=== PATIENT | male | born 1945 | race Caucasian/White ===

== ENCOUNTER 2018-01-19 16:58 | Inpatient (IN) | payer OTHER, MEDICARE ==
[~2018-01-19] VITALS: Ht 193 cm; Wt 125.7 kg
--- NOTE | 2018-01-19 17:09 | ED GENERAL ADULT ---
History of Present Illness General Chief Complaint: Lower Extremity Problems Stated Complaint: BIBA FOR "WOUND LEAKAGE" ON LEFT FOOT Source: patient, old records, EMS, W10 Exam Limitations: no limitations Vital Signs & Intake/Output Vital Signs & Intake/Output Vital Signs Date Time Temp Pulse Resp B/P B/P Pulse O2 O2 Flow FiO2 Mean Ox Delivery Rate 01/19 1830 99.9 104 20 98/50 93 Room Air 01/19 1758 Room Air 01/19 1744 103.0 01/19 1704 103.0 107 18 110/58 93 Room Air Allergies Coded Allergies: No Known Allergies (01/19/18) Triage Note: PT BIBA FROM [facility] FOR L LEG WOUND DRAINING. PT SEES [facility]. PT TEMP 103 UPON ARRIVAL. PT MENTATING WELL. MD ROSS AT BEDSIDE. Triage Nurses Notes Reviewed? yes HPI: Patient sent in from the nursing facility for evaluation of fever and had ulcers on his foot. Patient found to be febrile to 103. Patient is tachycardic. Patient denies any pain. Patient states that he is only here for evaluation of the fever. Past History Travel History Traveled to [place] past 21 day No Medical History Any Pertinent Medical History? see below for history Cardiovascular: CAD, hypertension, hyperlipidemia Respiratory: pulmonary embolism Endocrine: diabetes Surgical History Surgical History: non-contributory Psychosocial History Tobacco Use: Quit >30 days ago ETOH Use: denies use Illicit Drug Use: denies illicit drug use Family History Hx Contributory? No Review of Systems Review of Systems Constitutional: Reports: see HPI, chills, fever, weakness. EENTM: Reports: no symptoms. Respiratory: Reports: no symptoms. Cardiovascular: Reports: no symptoms. GI: Reports: no symptoms. Genitourinary: Reports: no symptoms. Musculoskeletal: Reports: see HPI. Skin: Reports: no symptoms. Neurological/Psychological: Reports: no symptoms. Hematologic/Endocrine: Reports: no symptoms. Immunologic/Allergic: Reports: no symptoms. All Other Systems: Reviewed and Negative Physical Exam Physical Exam General Appearance: well developed/nourished, alert, awake, anxious, moderate distress Head: atraumatic, normal appearance Eyes: Bilateral: PERRL, EOMI. Ears, Nose, Throat: normal pharynx, normal ENT inspection, hearing grossly normal Neck: normal inspection, supple, full range of motion Respiratory: normal breath sounds, chest non-tender, no respiratory distress, lungs clear Cardiovascular: regular rate/rhythm, normal peripheral pulses Gastrointestinal: normal bowel sounds, soft, non-tender, no organomegaly Back: normal inspection, normal range of motion Extremities: LEFT FOOT, ERYTHEMA, HOT, OPEN WOUNDS WITH ACTIVE DRAINAGE Neurologic/Psych: awake, alert, oriented x 3 Core Measures ACS in differential dx? No CVA/TIA Diagnosis: No Sepsis Present: Yes Sepsis Focused Exam Completed? Yes ED Sepsis Exam Date of Focused Sepsis Exam: 01/19/18 Time of Focused Sepsis Exam: 1820 Sepsis Cardiac Exam: Tachycardia Sepsis Resp Exam: CTA Sepsis Cap Refill Exam: <2 Sec Sepsis Peripheral Pulse Exam: Normal Sepsis Peripheral Pulse Location: Radial Sepsis Skin Color Exam: Normal for Ethnicity Skin Temp/Moisture Exam: Warm/Dry Progress Differential Diagnoses I considered the following diagnoses in my evaluation of the patient: [Sepsis, cellulitis, infected foot ulcer] Plan of Care: Orders Procedure Date/time Status Heart Healthy Diet 01/20 B Active LACTIC ACID 01/19 2007 Active ED Holding Orders 01/19 183 Active Admit to inpatient 01/19 1832 Active Vital Signs 01/19 1832 Active Code Status 01/19 1832 Active Telemetry/Welcome Wagon Host/Hostess 01/19 1821 Active CULTURE,URINE 01/19 170 Active BLOOD CULTURE 01/19 1707 Active URINALYSIS 01/19 1707 Complete TROPONIN LEVEL 01/19 1707 Complete PARTIAL THROMBOPLASTIN TIME 01/19 1707 Complete PROTHROMBIN TIME 01/19 1707 Complete LACTIC ACID 01/19 1707 Complete COMPREHENSIVE METABOLIC PANEL 01/19 1707 Complete CBC WITHOUT DIFFERENTIAL 01/19 170 Complete EKG 01/19 1707 Active Current Medications Sig/Carmelita Start time Last Medication Dose Stop Time Status Admin Non-Formulary 0 SEE ADMIN CRITERIA 01/19 1715 CAN Medication (NON FORMULARY) Laboratory Tests 01/19/18 1750: Urinalysis MOD H, Urine Color YEL, Urine Clarity CLDY H, Urine pH 7.5, Ur Specific [place] 1.015, Urine Protein 30 H, Urine Ketones NEG, Urine Nitrite NEG, Urine Bilirubin NEG, Urine Urobilinogen 0.2, Ur Leukocyte Esterase LARGE H , Ur Microscopic SEDIMENT EXAMINED, Urine RBC 1-3, Urine WBC 25-50 H, Ur Epithelial Cells RARE, Urine Crystals 1+ TRIP PHOS H, Urine Bacteria MANY H, Hyaline Casts RARE H, Granular Casts RARE H, Urine Mucus FEW, Urine Hemoglobin SMALL H, Urine Glucose NEG 01/19/18 1725: Anion Gap 12, Estimated GFR > 60, BUN/Creatinine Ratio 19.1, Glucose 164 H, Lactic Acid 1.8, Calcium 8.7, Total Bilirubin 0.5, AST 31, ALT 30, Alkaline Phosphatase 96, Troponin I < 0.01, Total Protein 7.2, Albumin 3.3 L, Globulin 3.9, Albumin/Globulin Ratio 0.8 L, PT 35.4 H, INR 3.21 H, APTT 40 H, CBC w Diff NO MAN DIFF REQ, RBC 4.96, MCV 82.5, MCH 27.0, MCHC 32.7 L, RDW 15.7 H, MPV 7.2 L, Gran % 82.5 H, Lymphocytes % 6.5 L, Monocytes % 8.5, Eosinophils % 2.0, Basophils % 0.5, Absolute Granulocytes 6.8 H, Absolute Lymphocytes 0.5 L, Absolute Monocytes 0.7 H, Absolute Eosinophils 0.2, Absolute Basophils 0 Microbiology 01/19 1750 URINE ROUT: Urine Culture - RECD 01/19 1745 BLOOD: Blood Culture - RECD 01/19 1725 BLOOD: Blood Culture - RECD Diagnostic Imaging: Viewed by Me: Radiology Read. Discussed w/RAD: Radiology Read. CXR Impression: PATIENT: YUSUF HIDALGO PRESENT AGE: 72 PATIENT ACCOUNT NO: [id number] : 43 LOCATION: [facility] ORDERING PHYSICIAN: Aravind Ross MD SERVICE DATE: 01/19/18 EXAM TYPE: RAD - XRY- PORTABLE CHEST XRAY EXAMINATION: XR PORTABLE CHEST CLINICAL INFORMATION: Fever COMPARISON: None TECHNIQUE: Portable frontal view of the chest was obtained. FINDINGS: The lungs are moderately expanded with patchy opacity left lung base retrocardiac region. Rest of lungs are clear.. Heart size is borderline with normal pulmonary vascularity. No gross bony abnormality seen. IMPRESSION: Patchy opacity left lung base retrocardiac area question infiltrate versus atelectasis. Recommend lateral view. DICTATED BY: Marjorie ABREU,Diego DATE/TIME DICTATED:01/19/181750 ONLINE PROGRAM COORDINATOR:MAXWELL DATE/TIME TRANSCRIBED:01/19/181750 CONFIDENTIAL, DO NOT COPY WITHOUT APPROPRIATE AUTHORIZATION. <Electronically signed in Other Vendor System> SIGNED BY: Marjorie ABREU,Diego 01/19/18 6987 Initial ED EKG: S TACH, NSSTT CHANGES Prior EKG: unchanged Rhythm Strip: sinus tachycardia Comments: Discussed with Dr. Fernández, he will consult on the patient tomorrow. Departure Departure Disposition: STILL A PATIENT Condition: Guarded Clinical Impression Primary Impression: Cellulitis Secondary Impressions: Foot ulcer Referrals: Allie ABREU,Bennett Sevilla (PCP/Family) Departure Forms: Customer Survey General Discharge Information Admission Note [facility]: [facility]ame Willis [facility] Documentation of Exam: Documentation of any treatments & extenuating circumstances including Concerns Regarding Discharge (functional status, medication knowledge or non-compliance, living conditions, etc.) that warrant an admission rather than observation: [IV fluids, IV antibiotics, wound consultation, patient is at high risk for early discharge.] Critical Care Note Critical Care Note Critical Care Time: non-applicable
[2018-01-19 17:35] LABS: ABSOLUTE BASOPHIL COUNT 0 /CUMM (0.0-0.2); ABSOLUTE EOSINOPHIL COUNT 0.2 /CUMM (0.0-0.7); ABSOLUTE GRANULOCYTE CT 6.8 /CUMM (1.4-6.5); ABSOLUTE LYMPH COUNT 0.5 /CUMM (1.2-3.4); ABSOLUTE MONOCYTE COUNT 0.7 /CUMM (0.10-0.60); BASOPHIL % 0.5 % (0.0-2.0); GRANULOCYTE % 82.5 % (42.2-75.2); HEMATOCRIT 40.9 % (42-52); MEAN CORPUSCULAR HGB CONC 32.7 G/DL (33.0-37.0); MEAN CORPUSCULAR VOLUME 82.5 FL (80.0-94.0); MEAN PLATELET VOLUME 7.2 FL (7.4-10.4); PLATELET COUNT 392 /CUMM (130-400); RBC DISTRIBUTION WIDTH 15.7 % (11.5-14.5); RED BLOOD CELL CT 4.96 /CUMM (4.70-6.10); WHITE BLOOD CELL COUNT 8.2 /CUMM (4.8-10.8)
[2018-01-19 17:45] LABS: PT 35.4 SEC (9.4-12.5); PTT 40 SEC (25-37)
--- NOTE | 2018-01-19 17:57 | RADIOLOGY REPORT ---
EXAMINATION: XR PORTABLE CHEST CLINICAL INFORMATION: Fever COMPARISON: None TECHNIQUE: Portable frontal view of the chest was obtained. FINDINGS: The lungs are moderately expanded with patchy opacity left lung base retrocardiac region. Rest of lungs are clear.. Heart size is borderline with normal pulmonary vascularity. No gross bony abnormality seen. IMPRESSION: Patchy opacity left lung base retrocardiac area question infiltrate versus atelectasis. Recommend lateral view.
--- NOTE | 2018-01-19 19:11 | RADIOLOGY REPORT ---
EXAMINATION: XR FOOT, LEFT CLINICAL INFORMATION: Infected foot ulcer. COMPARISON: None TECHNIQUE: AP, lateral, and oblique views of the left foot. FINDINGS: There is moderate soft tissue swelling along the plantar aspect of distal metatarsals but no bony erosive changes to suggest any osteomyelitis. No periosteal thickening elevation. No soft tissue gas seen to suggest any abscess. The ankle mortise and subtalar joints are normal. There is mild dorsal intertarsal spurring on lateral view suggestive of degenerative arthritis. IMPRESSION: No visible periosteal elevation, bony erosive changes or gas seen in the plantar soft tissues of the digits. There is however moderate soft tissue swelling along the plantar aspect. Mild degenerative changes dorsal intertarsal joints.
--- NOTE | 2018-01-19 20:10 | History & Physical ---
Aravind Quinonez MD 01/19/18 2009: General Information and HPI MD Statement: I have seen and personally examined YUSUF HIDALGO and documented this H&P. The patient is a 72 year old M who presented with a patient stated chief complaint of [fever]. Source of Information: patient, old records Exam Limitations: poor historian History of Present Illness: Patient is a 72-year-old male with a PMH significant for PVD, DVT status post IVC filter, urinary retention secondary to obstructive uropathy with suprapubic catheter placed, CVA, hypothyroidism, paroxysmal A. fib, CKD resolved, chronic venous stasis ulcers who presents to the [facility] ED from [facility] for evaluation of a fever. At [facility] patient's T-max was 102.9. Patient denies any subjective fevers, endorses mild chills over the past 2 days but overall is a poor historian. He denies any worsening of his chronic lower extremity wounds but does report intermittent shooting pain up his legs. Patient reports having a productive cough for the last 34 weeks which began with whitish sputum but has progressed to greenish sputum over the last week or so. He has associated rhinorrhea. He denies any lightheadedness, dizziness, headaches, sore throat, abdominal pain, diarrhea, melena. Allergies/Medications Allergies: Coded Allergies: No Known Allergies (01/19/18) Home Med list Escitalopram Oxalate 10 MG TABLET 1 TAB PO DAILY mental health (Reported) Furosemide 40 MG TABLET 1 TAB PO DAILY heart health (Reported) Levothyroxine Sodium 75 MCG TABLET 1 TAB PO DAILY hypothyroid (Reported) Montelukast Sodium 10 MG TABLET 1 TAB PO DAILY sesonal allergies (Reported) Potassium Chloride 20 MEQ TAB.ER.PRT 1 TAB PO DAILY supplement (Reported) Pravastatin Sodium 40 MG TABLET 1 TAB PO QPM hld (Reported) Ropinirole HCl 0.5 MG TABLET 1 TAB PO QPM RLS (Reported) Tamsulosin HCl 0.4 MG CAP.ER.24H 1 CAP PO DAILY BPH (Reported) Warfarin Sodium 6 MG TABLET 1 TAB PO DAILY DVT (Reported) Past History Travel History Traveled to [place] past 21 day No Medical History Neurological: NONE EENT: NONE Cardiovascular: hypertension, hyperlipidemia, paroxismal A fib Respiratory: pulmonary embolism Gastrointestinal: NONE Hepatic: NONE Renal: NONE Musculoskeletal: NONE Psychiatric: NONE Endocrine: hypothyroidism Blood Disorders: NONE Cancer(s): NONE TAX ASSESSOR/Reproductive: NONE Surgical History Surgical History: non-contributory Past Family/Social History Family History Relations & Conditions if any Relation not specified for: *No pertinent family history Psychosocial History Where do you live? Extended Care Facility Who Do You Live With? self Services at Home: Nursing Primary Language: Hungarian Smoking Status: Former Smoker ETOH Use: denies use Illicit Drug Use: denies illicit drug use Functional Ability Ambulation: bedrest for chronic venous stasis ulcer Review of Systems Review of Systems Constitutional: Reports: chills. Denies: fever. EENTM: Denies: blurred vision, double vision, visual changes. Cardiovascular: Denies: chest pain, palpitations, syncope. Respiratory: Reports: cough, sputum production. Denies: hemoptysis, short of breath. GI: Denies: abdominal pain, constipation, diarrhea, melena, nausea, vomiting. Genitourinary: Denies: hematuria. Musculoskeletal: Reports: see HPI. Skin: Reports: rash. Exam & Diagnostic Data Last 24 Hrs of Vital Signs/I&O Vital Signs Date Time Temp Pulse Resp B/P B/P Pulse O2 O2 Flow FiO2 Mean Ox Delivery Rate 01/194 84 84/52 01/20 2112 98.6 139 128/60 01/19 2010 96 16 96/54 95 Nasal 2.0L Cannula 01/19 1833 99.9 01/19 1830 99.9 104 20 98/50 93 Room Air 01/19 1758 Room Air 01/19 1744 103.0 01/19 1704 103.0 107 18 110/58 93 Room Air Physical Exam General Appearance Alert, Oriented X3, Cooperative, No Acute Distress Skin L distal lower extremity eryhtmatous patch with multiple large venous stasis ulcer on the medial aspect of the leg with serosanguineous drainage Skin Temp/Moisture Exam: Warm/Dry Sepsis Skin Exam (color): Normal for Ethnicity HEENT Atraumatic, PERRLA, EOMI, Mucous Membr. moist/pink Cardiovascular Normal S1, Normal S2, tachycardic HR 130s Lungs scant rhonchi Abdomen Normal Bowel Sounds, Soft, No Tenderness, suprapubic catheter in place with small amount of purulent drainage around the insertion site Neurological Normal Speech, Strength at 5/5 X4 Ext, Normal Tone, Sensation Intact, Cranial Nerves 3-12 NL Sepsis Peripheral Pulse Location: Radial Sepsis Peripheral Pulse Exam: Normal Sepsis Cap Refill Exam: <2 Sec Last 24 Hrs of Labs/Rito: Laboratory Tests 01/19/182101: ESR Westergren Pending 01/19/182006: Lactic Acid Cancelled 01/19/18 175: Urinalysis MOD H, Urine Color YEL, Urine Clarity CLDY H, Urine pH 7.5, Ur Specific [place] 1.015, Urine Protein 30 H, Urine Ketones NEG, Urine Nitrite NEG, Urine Bilirubin NEG, Urine Urobilinogen 0.2, Ur Leukocyte Esterase LARGE H , Ur Microscopic SEDIMENT EXAMINED, Urine RBC 1-3, Urine WBC 25-50 H, Ur Epithelial Cells RARE, Urine Crystals 1+ TRIP PHOS H, Urine Bacteria MANY H, Hyaline Casts RARE H, Granular Casts RARE H, Urine Mucus FEW, Urine Hemoglobin SMALL H, Urine Glucose NEG 01/19/18 172: Anion Gap 12, Estimated GFR > 60, BUN/Creatinine Ratio 19.1, Glucose 164 H, Lactic Acid 1.8, Calcium 8.7, Total Bilirubin 0.5, AST 31, ALT 30, Alkaline Phosphatase 96, Troponin I < 0.01, Total Protein 7.2, Albumin 3.3 L, Globulin 3.9, Albumin/Globulin Ratio 0.8 L, PT 35.4 H, INR 3.21 H, APTT 40 H, CBC w Diff NO MAN DIFF REQ, RBC 4.96, MCV 82.5, MCH 27.0, MCHC 32.7 L, RDW 15.7 H, MPV 7.2 L, Gran % 82.5 H, Lymphocytes % 6.5 L, Monocytes % 8.5, Eosinophils % 2.0, Basophils % 0.5, Absolute Granulocytes 6.8 H, Absolute Lymphocytes 0.5 L, Absolute Monocytes 0.7 H, Absolute Eosinophils 0.2, Absolute Basophils 0 Microbiology 01/19 1750 URINE ROUT: Urine Culture - RECD 01/19 1745 BLOOD: Blood Culture - RECD 01/19 1725 BLOOD: Blood Culture - RECD Diagnostic Data EKG Results sinus tachycardia with HR 117, PVCs, QTc 436 CXR Results FINDINGS: The lungs are moderately expanded with patchy opacity left lung base retrocardiac region. Rest of lungs are clear.. Heart size is borderline with normal pulmonary vascularity. No gross bony abnormality seen. IMPRESSION: Patchy opacity left lung base retrocardiac area question infiltrate versus atelectasis. Recommend lateral view. Assessment/Plan Assessment: Patient is a 72-year-old male with a PMH significant for PVD, DVT status post IVC filter, urinary retention secondary to obstructive uropathy with suprapubic catheter placed, CVA, hypothyroidism, paroxysmal A. fib, CKD now resolved, chronic venous stasis ulcers who presents to the [facility] ED from [facility] for evaluation of a fever. T-max of 102.9 prior to presentation, and reports subjective chills. Vital signs on presentation: T103, P107, RR 18, BP 110/58, pulse ox 93% on 2 L O2 nasal cannula Labs: WBC 8.2, 13.4/40.9, platelets 392, ESR 92 sodium 139, potassium 2.4, chloride 100, CO2 27, BUN 21, creatinine 1.1, glucose 164, lactic acid was repleted 8, troponin <0.01, INR 3.2 Problems #Sepsis with unclear etiology although could be secondary to either suprapubic catheter infection, lower extremity cellulitis, less likely pneumonia, meeting SIRS criteria for fever, tachycardia #Supratherapeutic INR 3.2 #Hypokalemia #Chronic medical problems including chronic venous stasis ulcers, paroxysmal A. fib, PVD, DVT, hypothyroidism, history of CVA Plan -Admit to general medicine floor -IV vancomycin and Zosyn, patient has grown Pseudomonas resistant to ceftaz in the past and has grown MRSA in his wound cultures previously -Panculture -ID consult in a.m. -Podiatry consult in a.m. -Wound care consult -Hold warfarin, lisinopril, tamsulosin, continue rest of home medication regimen -Follow daily INR and dose Coumadin accordingly -replete and monitor electrolytes -Wean off of supplemental O2 as tolerated Diet: Heart healthy diet DVT prophylaxis: Warfarin with supratherapeutic INR, no mechanical DVT prophylaxis given PVD and lower extremity ulcers CODE STATUS: DNR/DNI As Ranked By This Provider Problem List: 1. Sepsis Core Measures/Misc (04/20) Acute Coronary Syndrome ACS Diagnosis: No Congestive Heart Failure Congestive Heart Failure Diagnosis No Cerebrovascular Accident CVA/TIA Diagnosis: No VTE (View Protocol) VTE Risk Factors Age>40 No Mechanical VTE Prophylaxis d/t Medical Contraindication No VTE Pharm Prophylaxis d/t NA PharmProphylax ordered Sepsis (View protocol) Sepsis Present: Yes If YES complete Sepsis Event Note If YES complete Sepsis Event Note Renetta ABREU,[facility] 01/19/18 2234: Core Measures/Misc (04/20) Sepsis (View protocol) If YES complete Sepsis Event Note If YES complete Sepsis Event Note Resident Review Statement Resident Statement: examined this patient, discussed with internet sales director, agreed with internet sales director Other Findings: 72/M with PMH of PVD, DVT s/p IVC filter & on warfarin, suprapubic catheter 2/2 urinary obstruction, CVA, hypothyroidism, P.Afib, chronic venous stasis ulcers who presents from [facility] for evaluation of a fever. He had T.max of 102.9 at [facility]. The pt reprots chills for the past 2 days. He reports intermittent, mild pain shooting down his left leg. He reports 3-4 weeks of cough productive whitish sputum that has recently progressed to greenish sputum. He has associated rhinorrhea. He denies any other current active complain. Vitals: T.max 103, SBP 80s improved to 90s with fluid, HR 140s improved to 80s after fluid, O2 94 on 2 L of NC. Labs: No leukocytosis, H&H 13&40, ESR 92 was 52 on Sep, INR 3.21, K 3.4, Cr 1.1, Glucose 164, normal LFT. Imaging: CXR possible pneumonia, recommend lateral view which showed no acute pathology. Foot Xray showed moderate soft tissue swelling along the plantar aspect. Physical Exam, refer to the anterior note Assessment: This is a 72-year-old male with extensive past medical history including but not limited to left lower extremity venous stasis ulcer and suprapubic urinary catheter that was showing some pus around the insertion site. The ulcer did not show sign of infection however ESR was elevated up to 92 from 52 on September. The patient is on warfarin for A. fib and history of DVT, INR was 3.21. In the past he Pseudomonas resistant to ceftazidime and Cipro and MRSA on the ulcer. Problem list: * Sepsis secondary to infected suprapubic catheter. * A likely other source of infection or pneumonia and left lower extremity ulcer * PVD, DVT s/p IVC filter & on warfarin * Suprapubic catheter 2/2 urinary obstruction * Hx CVA * Hypothyroidism * P.Afib * Chronic venous stasis ulcers. Plan: * Admit to general medicine floor * Continue IV fluids hydration * Start IV vancomycin and Piperacillin/tazobactam * Panculture * ID, podiatry, wound consults * Continue the citalopram, levothyroxine, montelukast, pravastatin, ropinirole. * We will hold lisinopril, tamsulosin, and warfarin. -Heart healthy diet -DVT PPX: We can't use ALPS because of ulcer & DVTs hx, we will hold warfarin. -DNR/DNI Lazaro ABREU, [facility] 01/19/18 2234: Core Measures/Misc (04/20) Sepsis (View protocol) If YES complete Sepsis Event Note If YES complete Sepsis Event Note Attending MD Review Statement Attending Statement Attending MD Statement: examined this patient, discuss w/resident/PA/TRIM MACHINE OPERATOR, agreed w/resident/PA/TRIM MACHINE OPERATOR, reviewed images, amended to note Attending Assessment/Plan: 72 yo M with h/o HTN, paroxysmal Afib, left leg DVT s/p IVC on coumadin, urinary retention 2/2 obstructive uropathy s/p suprapubic catheter, CVA, chronic venous stasis, PVD with chronic nonhealing ulcers to left foot, for which he follows up with [facility] at [place], is sent in from [facility] for evaluation of fever 102.9 and worsening erythema and discharge from left foot wound. Patient is a poor historian. On my evaluation, patient denied chest pain, dyspnea or cough. However, when residents evaluated patient he reported productive cough and rhinorrhea. He does not think that his left foot wound has gotten any worse. Vitals: Tmax 103, HR 80 110's, BP 128/60 --> 86/56 --> 96/54 --> 103/54, sats 95% on 2L. Exam: AAO, no distress, dry mucosa, Neck supple, Chest clear, Heart S1S2 regular , tachycardic, Abd soft, NT, Left foot multiple ulcers noted to medial and lateral aspect with surrounding erythema and serous drainage, warmth+, tender+. Peripheral pulses difficult to palpate due to edema. Suprapubic catheter site purulent discharge noted, teixeira draining clear urine. Labs: no leukocytosis, H/H 13.4/40.9, ESR 92, INR 3.21, K 3.4, BUN 21, Creat 1.1 , glucose 164, lactic acid 1.8, trop neg. UA cloudy, WBC 25-50, bacteria many, large LE. CXR: patchy opacity left lung base retrocardiac area ?infiltrate vs atelectasis. On lateral film, there is no opacification seen in left lung base retrocardiac area. Mild cardiomegaly without congestion. Left foot Xray: no periosteal elevation, bone erosive changes or gas, moderate soft tissue swelling along plantar aspect. Mild degenerative changes dorsal intertarsal joints. EKG: sinus tachycardia, PVC's, incomplete RBBB, Qtc 436. Foot MRI (October 2017): prominent subcutaneous ulceration of medial ankle, no e/o osteomyelitis or abscess. Assessment and plan: 1. Sepsis possible sources being the left chronic nonhealing ulcers with worsening cellulitis and ?underlying osteomyelitis, chronic bacteriuria in the setting of suprapubic catheter and left lower lobe pneumonia (negative CXR). 2. Hypotension related to sepsis improving with fluids 3. Chronic venous insufficiency and peripheral vascular disease 4. Warfarin induced coagulopathy 5. Paroxysmal Afib, HTN, previous DVT 6. Hypokalemia - Admit to General medicine - Panculture - IV hydration - Based on previous extremity and urine cultures patient has grown MRSA, pseudomonas and proteus. Pseudomonas from extremity culture was resistant to Ceftaz. Hence, we will cover broadly with Zosyn and Vancomycin. - Obtain ID consult - Podiatry consult - Wound consult - Hold coumadin, check INR in AM - Repeat EKG and troponin in AM - Resume home meds - Replete electrolytes DVT ppx supratherapeutic INR on coumadin. DNR/I.
--- NOTE | 2018-01-19 20:42 | Admission Certification ---
Admission Certification Certification Statement - As attending physician, I certify that at the time of - admission, based on clinical presentation, severity of - symptoms, need for further diagnostic testing and - therapeutic interventions, and risk of adverse outcomes - without in-hospital treatment, in my clinical assessment, - this patient requires an acute hospital stay for a minimum - of two nights or longer. I have also considered psychsocial - factors such as support system, advanced age, financial - issues, cognitive issues, and failed out-patient treatments, - past re-admission history, safety of patient, and lack of - compliance as applicable. Specific rationale supporting this admission is: Sepsis, left foot chronic nonhealing ulcer now with associated cellulitis.
[2018-01-19] MEDS ORDERED: TAMSULOSIN HCL0.4 M1 PO (20:51)
[2018-01-19] MEDS ORDERED: WARFARIN SODIUM6 M1 PO (20:51)
[2018-01-19] MEDS ORDERED: PRAVASTATIN SOD40 M2 PO (20:51)
[2018-01-19] MEDS ORDERED: ESCITALOPRAM OX10 MG PO (20:52)
[2018-01-19] MEDS ORDERED: FUROSEMIDE40 M1 PO (20:52)
[2018-01-19] MEDS ORDERED: LEVOTHYROXINE75 MCG PO (20:52)
[2018-01-19] MEDS ORDERED: POTASSIUM CHLO20 ME2 PO (20:52)
[2018-01-19] MEDS ORDERED: MONTELUKAST SOD10 M1 PO (20:53)
[2018-01-19] MEDS ORDERED: ROPINIROLE HCL0.5 MG PO (20:53)
--- NOTE | 2018-01-19 22:06 | RADIOLOGY REPORT ---
EXAMINATION: XR CHEST CLINICAL INFORMATION: Septic with productive cough and green sputum. COMPARISON: Chest 01/19/2018. TECHNIQUE: 2 views of the chest were obtained. FINDINGS: The lungs are in moderate inspiration with no acute process seen. No patchy opacities seen in the left lung base. The heart size is enlarged. Pulmonary vascularity is normal. No gross bony abnormality seen. IMPRESSION: On the lateral view there is no opacification seen in the left lung base retrocardiac area. Mild cardiomegaly without congestion.
[2018-01-19 23:50] VITALS: BP 103/54
[2018-01-20 06:09] VITALS: BP 112/72
--- NOTE | 2018-01-20 07:51 | PN- Housestaff ---
Yaima ABREU,Valentina 01/20/18 0750: Subjective Follow-up For: Sepsis of unclear origin Subjective: Patient resting comfortable today. Nursing reports no signifincant events overnight. Review of Systems Constitutional: Reports: see HPI. Objective Last 24 Hrs of Vital Signs/I&O Vital Signs Date Time Temp Pulse Resp B/P B/P Pulse O2 O2 Flow FiO2 Mean Ox Delivery Rate 01/21 0000 Nasal 2.0L Cannula 01/20 2244 98.3 90 20 106/62 93 Nasal 2.0L Cannula 01/20 1339 97.5 72 20 117/68 95 Nasal Cannula 01/20 0800 94 Nasal 2.0L Cannula 01/20 0609 97.6 79 20 112/72 95 Nasal 2.0L Cannula Intake & Output 01/21 0800 01/21 0000 01/20 1600 Intake Total 500 Output Total 1250 950 Balance -750 -950 Intake, IV 300 Intake, Oral 200 Number 2 Bowel Movements Output, Urine 1250 950 Physical Exam General Appearance: Alert, Oriented X3, Cooperative, No Acute Distress Skin Temp/Moisture Exam: Warm/Dry HEENT: Atraumatic, Mucous Membr. moist/pink Cardiovascular: Regular Rate, Normal S1, Normal S2 Lungs: Clear to Auscultation, Normal Air Movement Abdomen: Normal Bowel Sounds, Soft, No Tenderness, suprapubic catheter in place Extremities: left foot/ankle ulcer with erythema, and edema, poorly palpable pulses Current Medications: Current Medications Sig/Carmelita Start time Last Medication Dose Route Stop Time Status Admin Escitalopram Oxalate 10 MG DAILY 01/20 900 AC 01/20 PO 0841 Levothyroxine Sodium 0.075 MG DAILY 01/20 09 AC 01/20 PO 0841 Montelukast Sodium 10 MG DAILY 01/20 09 AC 01/20 PO 0841 Patient Medication 1 ED ONE ONE 01/20 1630 DC Teaching ED 01/20 1631 Piperacillin Sod/ 4.5 GM Q6H 01/20 0600 AC 01/20 Tazobactam Sod IV 2325 Sodium Chloride 100 ML Piperacillin Sod/ 4.5 GM Q6H 01/20 0100 DC 01/20 Tazobactam Sod IV 0621 Sodium Chloride 100 ML Potassium Chloride 40 MEQ ONCE ONE 01/20 1545 DC 01/20 PO 01/20 1546 1742 Potassium Chloride 40 MEQ ONCE ONE 01/20 0615 DC 01/20 PO 01/20 0616 0621 Pravastatin Sodium 20 MG 1700 01/20 1700 AC 01/20 PO 1743 Ropinirole HCl 0.5 MG QPM 01/20 2100 AC 01/20 PO 2018 Sodium Chloride 1,000 ML Q13H 01/20 0015 DC 01/20 IV 01/214 1742 Vancomycin HCl 1,000 MG DAILY 01/20 0900 DC 01/20 Sodium Chloride 250 ML IV 0841 Last 24 Hrs of Lab/Rito Results Last 24 Hrs of Labs/Mics: Laboratory Tests 01/20/18 0750: Anion Gap 9, Estimated GFR > 60, BUN/Creatinine Ratio 16.0, Troponin I < 0.01, PT 33.2 H, INR 3.01 H, CBC w Diff NO MAN DIFF REQ, RBC 4.24 L, MCV 82.3, MCH 27.2, MCHC 33.0, RDW 16.0 H, MPV 7.6, Gran % 72.8, Lymphocytes % 11.0 L, Monocytes % 11.6 H, Eosinophils % 4.0, Basophils % 0.6, Absolute Granulocytes 4.3, Absolute Lymphocytes 0.6 L, Absolute Monocytes 0.7 H, Absolute Eosinophils 0.2, Absolute Basophils 0 Assessment/Plan Assessment: Patient is a 72-year-old male with a PMH significant for PVD, DVT status post IVC filter, urinary retention secondary to obstructive uropathy with suprapubic catheter placed, CVA, hypothyroidism, paroxysmal A. fib, CKD now resolved, chronic venous stasis ulcers who presents to [facility] ED from [facility] for evaluation of a fever. T-max of 102.9 prior to presentation, and reports subjective chills. Vital signs on presentation: T103, P107, RR 18, BP 110/58, pulse ox 93% on 2 L O2 nasal cannula Labs: WBC 8.2, 13.4/40.9, platelets 392, ESR 92 sodium 139, potassium 2.4, chloride 100, CO2 27, BUN 21, creatinine 1.1, glucose 164, lactic acid was repleted 8, troponin <0.01, INR 3.2 Problems 1. Sepsis with unclear etiology although could be secondary to either suprapubic catheter infection, lower extremity cellulitis, less likely pneumonia, meeting SIRS criteria for fever, tachycardia - ESR elevated. Evaluated by ID, podiatry and vascular, possible osteomyeltitis, MRI of left foot/ankle pending today. - Urine cultures now growing gram negative rods 2. Supratherapeutic INR 3. Hypokalemia- repleted with no significant improvemnet. 4. Chronic medical problems including chronic venous stasis ulcers, paroxysmal A. fib, PVD, DVT, hypothyroidism, history of CVA Plan - Admitted to general medicine floor - IV vancomycin discontinued - Continued Zosyn to cover for possible pseudomonas (recent history of pseud resistant to ceftax) - Follow up urine culture identification and sensitivities - Continue to follow blood cultures - ID, wound and podiatry on board - MRI of left foot today - Continue to hold coumadin for supratherapeutic INR and monitor INR - Continue lisinopril and tamsulosin once bp improves, continue rest of home medication regimen -Replete K+ and repeat BEP in AM -Wean off of supplemental O2 as tolerated Diet: Heart healthy diet DVT prophylaxis: Warfarin with supratherapeutic INR, no mechanical DVT prophylaxis given PVD and lower extremity ulcers CODE STATUS: DNR/DNI Problem List: 1. Sepsis 2. Foot ulcer 3. Cellulitis Pain Ratin Pain Location: left foot Pain Goal: Pain 4 or less Pain Plan: prn Tomorrow's Labs & Rationales: cbc bep inr Rae Sheikh MD 01/20/18 1116: Attending MD Review Statement Attending Statement Attending MD Statement: examined this patient, discuss w/resident/PA/ASSOCIATE PROGRAM MANAGER, agreed w/resident/PA/ASSOCIATE PROGRAM MANAGER, reviewed EMR data (avail), discussed with nursing, discussed with case mgmt, amended to note Attending Assessment/Plan: Patient seen and examined. No issues overnight reported by nursing staff. Remains afebrile and hemodynamically stable. Resting comfortably and not in any acute distress. Denies any pain. No new complaints this morning. On examination he has several superficial ulcerations involving bilateral mandibular the heel and foot on the left side. Significantly edema erythema and some discharge. Unable to assess distal pulses due to significant edema. Problems 1. Sepsis secondary to chronic nonhealing foot ulcers. 2. Paroxysmal atrial fibrillation 3. History of deep vein thrombosis 4. Anemia Plan: -Patient was started overnight on vancomycin and Zosyn based on previous history of MRSA and Pseudomonas growing from the same foot in August. Continue his antibiotic regimen pending evaluation by the ID service. -Recommend evaluation by the podiatry service to determine if patient requires any surgical intervention. Would defer further imaging to rule out underlying osteomyelitis to the podiatry service. Currently x-ray shows no evidence of OM. He however does have significant elevated white cell count. Follow up urine culture. -Continue to hold Coumadin until INR is less than 2.9. Resume home dose of anticoagulant therapy. -Check stool guaiac. Repeat H&H tomorrow. -Supplement potassium orally.
[2018-01-20 08:32] LABS: PT 33.2 SEC (9.4-12.5)
[2018-01-20 08:37] LABS: ABSOLUTE BASOPHIL COUNT 0 /CUMM (0.0-0.2); ABSOLUTE EOSINOPHIL COUNT 0.2 /CUMM (0.0-0.7); ABSOLUTE GRANULOCYTE CT 4.3 /CUMM (1.4-6.5); ABSOLUTE MONOCYTE COUNT 0.7 /CUMM (0.10-0.60)
[2018-01-20 08:56] LABS: ABSOLUTE LYMPH COUNT 0.6 /CUMM (1.2-3.4); BASOPHIL % 0.6 % (0.0-2.0); GRANULOCYTE % 72.8 % (42.2-75.2); MEAN CORPUSCULAR HGB 27.2 PG (27.0-31.0); MEAN CORPUSCULAR VOLUME 82.3 FL (80.0-94.0); MEAN PLATELET VOLUME 7.6 FL (7.4-10.4); PLATELET COUNT 312 /CUMM (130-400); RED BLOOD CELL CT 4.24 /CUMM (4.70-6.10); WHITE BLOOD CELL COUNT 5.9 /CUMM (4.8-10.8)
--- NOTE | 2018-01-20 12:06 | PN- Wound Care ---
Subjective Subjective: Patient is 72-year-old with history of DVT IVC filter chronic venous insufficiency with chronic long-standing left lower extremity venous stasis ulcers greater than a year's duration. He is for the most part sedentary with his legs dependent has chronic edema. He was treated with compression dressing but failed to make significant improvement due to copious drainage. MRI in October was negative for osteomyelitis. He had seen vascular surgery in the past for evaluation for vein closure was thought not to be a candidate. Admitted with increasing fever in the setting of an indwelling Hill catheter and new lower extremity ulcerations Objective Vital Signs and I&Os Vital Signs Result Date Time Pulse Ox 95 01/20 0609 B/P 112/72 01/20 0609 O2 Delivery Nasal Cannula 01/20 06 O2 Flow Rate 2.0L 01/20 06 Temp 97.6 01/20 0609 Pulse 79 01/20 0609 Resp 20 01/20 0609 Intake & Output 01/20 0000 01/19 1600 01/19 0800 Intake Total 5000 Output Total 1000 Balance 4000 Intake, IV 5000 Intake, Oral 0 Output, Urine 1000 Patient 200 lb Weight Weight Estimated Measurement Method On exam there are 2 new left lower extremity ulcers which may be related to blisters measuring approximately 4-5 cm. There is edema of the left lower extremity. There is mild erythema. There are 2 chronic bilateral venous ulcers of his foot medial measuring approximately 4 x 5 cm the lateral 7 x 3.5 cm now with 100% yellow fill. Distalis pedis pulses easily palpable Impression/Plan Impression/Plan Impression/Plan: 72-year-old with chronic venous insufficiency and long-standing chronic lower extremity ulceration having failed compression therapy now admitted with fever. Source may be urologic infection secondary to indwelling Hill alkalosis soft tissue skin infection. The with sedimentation rate of 92 development of osteomyelitis needs to be excluded. Recommend repeat MRI. Podiatry evaluation for debridement. Aggressive leg elevation. Wound care can be Aquacel Ag changed daily with aggressive wound cleansing
[2018-01-20 13:39] VITALS: BP 117/68
--- NOTE | 2018-01-20 15:40 | Cons- Infect Disease ---
General Information and HPI Consulting Request Date of Consult: 01/20/18 Requested By: Rae Sheikh MD Reason for Consult: Unexplained fever Source of Information: patient History of Present Illness: This is a 72-year-old man, prison resident, with a history of hypertension , paroxysmal atrial fibrillation, maintained on Coumadin, status post CVA, hypothyroidism, DVT, status post IVC filter, peripheral vascular disease, urinary retention, status post suprapubic catheter, and chronic venous stasis ulcers of the left leg, admitted on January 19 with a several week history of a cough, productive of green sputum over the past week, and the more acute onset of fevers and chills. On admission he was febrile to 103, with an initial blood pressure of 110/58 but with a decrease to 84/52 after several hours. Laboratory data revealed a white blood cell count of 8000, BUN/creatinine 21 and 1.1, with normal liver enzymes, INR 3.21. Urinalysis 1-3 RBC/25-50 WBCs. Chest x-ray was negative. X-ray of the left foot revealed moderate soft tissue swelling along the plantar aspect. He was begun on Vancomycin and Zosyn. He has defervesced overnight and reports no complaints at this time. Allergies/Medications Allergies: Coded Allergies: No Known Allergies (01/19/18) Home Med List: Escitalopram Oxalate 10 MG TABLET 1 TAB PO DAILY mental health (Reported) Furosemide 40 MG TABLET 1 TAB PO DAILY heart health (Reported) Levothyroxine Sodium 75 MCG TABLET 1 TAB PO DAILY hypothyroid (Reported) Montelukast Sodium 10 MG TABLET 1 TAB PO DAILY sesonal allergies (Reported) Potassium Chloride 20 MEQ TAB.ER.PRT 1 TAB PO DAILY supplement (Reported) Pravastatin Sodium 40 MG TABLET 1 TAB PO QPM hld (Reported) Ropinirole HCl 0.5 MG TABLET 1 TAB PO QPM RLS (Reported) Tamsulosin HCl 0.4 MG CAP.ER.24H 1 CAP PO DAILY BPH (Reported) Warfarin Sodium 6 MG TABLET 1 TAB PO DAILY DVT (Reported) Past History Travel History Traveled to [place] past 21 day No Medical History Blood Transfusion Hx: No Neurological: NONE EENT: NONE Cardiovascular: hypertension, hyperlipidemia, PVD, paroxismal A fib Gastrointestinal: NONE Hepatic: NONE Renal: chronic kidney disease, SUPRAPUBIC TUBE Musculoskeletal: MUSCLE WEAKNESS Psychiatric: depression Endocrine: hypothyroidism Blood Disorders: DVT Cancer(s): NONE QUALITY 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 Extended Care Facility Who Do You Live With? self Services at Home: Nursing Primary Language: Ghanaian Smoking Status: Former Smoker ETOH Use: denies use Illicit Drug Use: denies illicit drug use Functional Ability Ambulation: bedrest for chronic venous stasis ulcer Review of Systems Review of Systems All Other Systems: Reviewed and Negative Exam & Diagnostic Data Last 24 Hrs of Vital Signs/I&O Vital Signs Date Time Temp Pulse Resp B/P B/P Pulse O2 O2 Flow FiO2 Mean Ox Delivery Rate 01/20 1339 97.5 72 20 117/68 95 Nasal Cannula 01/20 0800 94 Nasal 2.0L Cannula 01/20 0609 97.6 79 20 112/72 95 Nasal 2.0L Cannula 01/20 0000 95 Nasal 2.0L Cannula 01/19 2350 97.7 62 22 103/54 94 Nasal 2.0L Cannula 01/19 2242 98.2 80 16 96/54 94 Nasal 2.0L Cannula 01/19 2226 81 88/58 01/19 2209 84 86/58 01/19 2155 85 86/56 01/19 2134 84 84/52 01/19 2112 98.6 139 128/60 01/19 2010 96 16 96/54 95 Nasal 2.0L Cannula 01/19 1833 99.9 01/19 1830 99.9 104 20 98/50 93 Room Air 01/19 1758 Room Air 01/19 1744 103.0 01/19 1704 103.0 107 18 110/58 93 Room Air Intake & Output 01/20 1600 01/20 0800 01/20 0000 Intake Total 840 5000 Output Total 823 099 7545 Balance -372 110 8654 Intake, IV 600 5000 Intake, Oral 240 0 Output, Urine 642 878 6284 Patient 277 lb 277 lb Weight Weight Bed scale Bed scale Measurement Method Physical Exam Other Physical Findings: He is awake and alert in no acute distress. T-max 103. Skin reveals no rash. HEENT exam is negative. Neck is supple with no adenopathy. Lungs bibasilar crackles, right greater than left . Heart irregular rhythm with no murmur. Abdomen is obese, soft, nontender with positive bowel sounds. Back no CVA tenderness. Extremities left ankle with medial and lateral malleolar ulcers, with minimal erythema and mild edema, nontender to palpation; pulses 1+. Neuro is without focality. Last 24 Hours of Lab Results: Laboratory Tests 01/20 01/19 01/19 0750 2102 2006 Chemistry Sodium (137 - 145 mmol/L) 145 Potassium (3.5 - 5.1 mmol/L) 3.3 L Chloride (98 - 107 mmol/L) 109 H Carbon Dioxide (22 - 30 mmol/L) 27 Anion Gap (5 - 16) 9 BUN (9 - 20 mg/dL) 16 Creatinine (0.7 - 1.2 mg/dL) 1.0 Estimated GFR (>60 ml/min) > 60 BUN/Creatinine Ratio (7 - 25 %) 16.0 Lactic Acid Cancelled Troponin I (<0.11 ng/ml) < 0.01 Coagulation PT (9.4 - 12.5 SEC) 33.2 H INR (0.90 - 1.17) 3.01 H Hematology CBC w Diff NO MAN DIFF REQ WBC (4.8 - 10.8 /CUMM) 5.9 RBC (4.70 - 6.10 /CUMM) 4.24 L Hgb (14.0 - 18.0 G/DL) 11.5 L Hct (42 - 52 %) 35.0 L MCV (80.0 - 94.0 FL) 82.3 MCH (27.0 - 31.0 PG) 27.2 MCHC (33.0 - 37.0 G/DL) 33.0 RDW (11.5 - 14.5 %) 16.0 H Plt Count (130 - 400 /CUMM) 312 MPV (7.4 - 10.4 FL) 7.6 Gran % (42.2 - 75.2 %) 72.8 Lymphocytes % (20.5 - 51.1 %) 11.0 L Monocytes % (1.7 - 9.3 %) 11.6 H Eosinophils % (0 - 5 %) 4.0 Basophils % (0.0 - 2.0 %) 0.6 Absolute Granulocytes (1.4 - 6.5 /CUMM) 4.3 Absolute Lymphocytes (1.2 - 3.4 /CUMM) 0.6 L Absolute Monocytes (0.10 - 0.60 /CUMM) 0.7 H Absolute Eosinophils (0.0 - 0.7 /CUMM) 0.2 Absolute Basophils (0.0 - 0.2 /CUMM) 0 ESR Westergren (0 - 10 MM) 92 H 18 01/19 1750 1725 Chemistry Sodium (137 - 145 mmol/L) 139 Potassium (3.5 - 5.1 mmol/L) 3.4 L Chloride (98 - 107 mmol/L) 100 Carbon Dioxide (22 - 30 mmol/L) 27 Anion Gap (5 - 16) 12 BUN (9 - 20 mg/dL) 21 H Creatinine (0.7 - 1.2 mg/dL) 1.1 Estimated GFR (>60 ml/min) > 60 BUN/Creatinine Ratio (7 - 25 %) 19.1 Glucose (65 - 99 mg/dL) 164 H Lactic Acid (0.7 - 2.1 mmol/L) 1.8 Calcium (8.4 - 10.2 mg/dL) 8.7 Phosphorus (2.5 - 4.5 mg/dL) 2.1 L Magnesium (1.6 - 2.3 mg/dL) 2.0 Total Bilirubin (0.2 - 1.3 mg/dL) 0.5 AST (17 - 59 U/L) 31 ALT (21 - 72 U/L) 30 Alkaline Phosphatase (< 127 U/L) 96 Troponin I (<0.11 ng/ml) < 0.01 Total Protein (6.3 - 8.2 g/dL) 7.2 Albumin (3.5 - 5.0 g/dL) 3.3 L Globulin (1.9 - 4.2 gm/dL) 3.9 Albumin/Globulin Ratio (1.1 - 2.2 %) 0.8 L Coagulation PT (9.4 - 12.5 SEC) 35.4 H INR (0.90 - 1.17) 3.21 H APTT (25 - 37 SEC) 40 H Hematology CBC w Diff NO MAN DIFF REQ WBC (4.8 - 10.8 /CUMM) 8.2 RBC (4.70 - 6.10 /CUMM) 4.96 Hgb (14.0 - 18.0 G/DL) 13.4 L Hct (42 - 52 %) 40.9 L MCV (80.0 - 94.0 FL) 82.5 MCH (27.0 - 31.0 PG) 27.0 MCHC (33.0 - 37.0 G/DL) 32.7 L RDW (11.5 - 14.5 %) 15.7 H Plt Count (130 - 400 /CUMM) 392 MPV (7.4 - 10.4 FL) 7.2 L Gran % (42.2 - 75.2 %) 82.5 H Lymphocytes % (20.5 - 51.1 %) 6.5 L Monocytes % (1.7 - 9.3 %) 8.5 Eosinophils % (0 - 5 %) 2.0 Basophils % (0.0 - 2.0 %) 0.5 Absolute Granulocytes (1.4 - 6.5 /CUMM) 6.8 H Absolute Lymphocytes (1.2 - 3.4 /CUMM) 0.5 L Absolute Monocytes (0.10 - 0.60 /CUMM) 0.7 H Absolute Eosinophils (0.0 - 0.7 /CUMM) 0.2 Absolute Basophils (0.0 - 0.2 /CUMM) 0 Urines Urinalysis MOD H Urine Color (YEL,AMB,STR) YEL Urine Clarity (CLEAR) CLDY H Urine pH (5.0 - 8.0) 7.5 Ur Specific [place] (1.001 - 1.035) 1.015 Urine Protein (NEG,<30 MG/DL) 30 H Urine Ketones (NEG) NEG Urine Nitrite (NEG) NEG Urine Bilirubin (NEG) NEG Urine Urobilinogen (0.1 - 1.0 EU/dl) 0.2 Ur Leukocyte Esterase (NEG) LARGE H Ur Microscopic SEDIMENT EXAMINED Urine RBC (0 - 5 /HPF) 1-3 Urine WBC (0 - 2 /HPF) 25-50 H Ur Epithelial Cells (NONE,FEW) RARE Urine Crystals 1+ TRIP PHOS H Urine Bacteria (NEG/NONE) MANY H Hyaline Casts (0/LPF) RARE H Granular Casts (NONE /LPF) RARE H Urine Mucus (FEW,NONE) FEW Urine Hemoglobin (NEG) SMALL H Urine Glucose (N MG/DL) NEG Last 24 Hours of Rito Results: Blood cultures 2 January 19 negative Urine culture January 19 greater than 100,000 colonies of gram-negative rods Diagnostic Data Recent Imaging Findings: Chest x-ray January 19 negative X-ray of the left foot January 19 reveals moderate soft tissue swelling with no bony erosive changes or gas in the plantar soft tissues Assessment/Plan Assessment/Plan Impression: This is a 72-year-old man status post suprapubic catheter with chronic venous stasis ulcers of the left leg, admitted on January 19 with a several week history of a cough, productive of green sputum over the past week, and the more acute onset of fevers and chills, found to be febrile and hypotensive with a normal white blood cell count and pyuria and with a negative chest x-ray. He has several possible sources of fever, including the urinary tract, with a suprapubic catheter in place and positive urine culture, though this could represent colonization secondary to the catheter, the left foot venous stasis ulcers, though there is no significant inflammation of the left leg, and the lungs, with a history of a productive cough, though his respiratory status appears stable and his chest x-ray is negative. The possibility of underlying osteomyelitis of the left ankle could be considered, though the x-ray is negative and an MRI 3 months prior to admission was also negative. A recent culture of the left foot grew MRSA and Pseudomonas, but this is of unclear significance as it likely represents a superficial culture. The Pseudomonas, however, was resistant to Ceftazidime; therefore it is reasonable to continue him on Zosyn pending the final urine culture. Suggestion: 1. Await Podiatry evaluation 2. Consider repeat MRI of the left ankle 3. Follow-up final urine and blood cultures 4. Discontinue Vancomycin 5. Continue Zosyn pending above Consult Acknowledgment - Thank you for your consult request.
[2018-01-20 22:44] VITALS: BP 106/62
[2018-01-21 06:20] VITALS: BP 98/50
--- NOTE | 2018-01-21 07:51 | PN- Housestaff ---
Yaima ABREU,Valentina 01/21/18 0751: Subjective Follow-up For: Sepsis of urological origin - proteius mirabilis Left foot ulcer - possible osteomyelitis Subjective: Patient was seen and examined today. Patient reports he feels well today. States he slept well and denies any complaints. Review of Systems Constitutional: Reports: see HPI. Objective Last 24 Hrs of Vital Signs/I&O Vital Signs Date Time Temp Pulse Resp B/P B/P Pulse O2 O2 Flow FiO2 Mean Ox Delivery Rate 01/22 620 98.4 87 18 98/50 93 Nasal Cannula 01/21 0000 Nasal 2.0L Cannula 01/20 2244 98.3 90 20 106/62 93 Nasal 2.0L Cannula 01/20 1339 97.5 72 20 117/68 95 Nasal Cannula 01/20 0800 94 Nasal 2.0L Cannula Intake & Output 01/21 0800 01/21 0000 01/20 1600 Intake Total 800 500 Output Total 900 1250 950 Balance -100 -750 -950 Intake, IV 600 300 Intake, Oral 200 200 Number 2 Bowel Movements Output, Urine 900 1250 950 Physical Exam General Appearance: Alert, Cooperative, No Acute Distress Skin Temp/Moisture Exam: Warm/Dry HEENT: Atraumatic, Mucous Membr. moist/pink Cardiovascular: Regular Rate, Normal S1, Normal S2 Lungs: Clear to Auscultation, Normal Air Movement Abdomen: Normal Bowel Sounds, Soft, No Tenderness, suprapubic catheter in place- mild erythema around site Neurological: Normal Speech, Cranial Nerves 3-12 NL, alert and oriented x 3 Extremities: left lower extremity ulcer currently wrapped in bandages Vascular: poorly palpable pulses Current Medications: Current Medications Sig/Carmelita Start time Last Medication Dose Route Stop Time Status Admin Escitalopram Oxalate 10 MG DAILY 01/20 900 AC 01/20 PO 0841 Levothyroxine Sodium 0.075 MG DAILY 01/20 900 AC 01/20 PO 0841 Montelukast Sodium 10 MG DAILY 01/20 900 AC 01/20 PO 0841 Patient Medication 1 ED ONE ONE 01/20 1630 DC Teaching ED 01/20 1631 Piperacillin Sod/ 4.5 GM Q6H 01/20 600 AC 01/21 Tazobactam Sod IV 0509 Sodium Chloride 100 ML Potassium Chloride 40 MEQ ONCE ONE 01/20 1545 DC 01/20 PO 01/20 1546 1742 Pravastatin Sodium 20 MG 1700 01/20 1700 AC 01/20 PO 174 Ropinirole HCl 0.5 MG QPM 01/20 2100 AC 01/20 PO 2018 Sodium Chloride 1,000 ML Q13H 01/20 0015 DC 01/20 IV 01/21 0214 174 Vancomycin HCl 1,000 MG DAILY 01/20 0900 DC 01/20 Sodium Chloride 250 ML IV 0841 Last 24 Hrs of Lab/Rito Results Last 24 Hrs of Labs/Mics: Laboratory Tests 01/21/18 0748: Sodium Pending, Potassium Pending, Chloride Pending, Carbon Dioxide Pending, Anion Gap Pending, BUN Pending, Creatinine Pending, BUN/Creatinine Ratio Pending , PT Pending, INR Pending, CBC w Diff Pending, WBC Pending, RBC Pending, Hgb Pending, Hct Pending, MCV Pending, MCH Pending, MCHC Pending, RDW Pending, Plt Count Pending, MPV Pending Assessment/Plan Assessment: Patient is a 72-year-old male with a PMH significant for PVD, DVT status post IVC filter, urinary retention secondary to obstructive uropathy with suprapubic catheter placed, CVA, hypothyroidism, paroxysmal A. fib, CKD now resolved, chronic venous stasis ulcers who presents to the ED from [facility] for evaluation of a fever. T-max of 102.9 prior to presentation, and reports subjective chills. Vital signs on presentation: T103, P107, RR 18, BP 110/58, pulse ox 93% on 2 L O2 nasal cannula Labs: WBC 8.2, 13.4/40.9, platelets 392, ESR 92 sodium 139, potassium 2.4, chloride 100, CO2 27, BUN 21, creatinine 1.1, glucose 164, lactic acid was repleted 8, troponin <0.01, INR 3.2 Problems 1. Sepsis secondary to suprapubic catheter infection with urine culture now growing proteus mirabilis, ID on board, antibiotics narrowed- discontinued Zosyn and started on Augmentin 875mg BID today 2. Left lower extremity ulcer - nonhealing, possible osteomyeltitis - ESR elevated. Evaluated by ID, podiatry and vascular, possible osteomyeltitis, MRI of left foot/ankle pending today. 3. Supratherapeutic INR - 3.06 today 4. Hypokalemia- resolved 5. Chronic medical problems including chronic venous stasis ulcers, paroxysmal A. fib, PVD, DVT, hypothyroidism, history of CVA Plan - Admitted to general medicine floor - IV Zosyn discontinued, started on Augmentin - Continue to follow blood cultures - ID, wound and podiatry on board - MRI of left foot today - Continue to hold coumadin for supratherapeutic INR and monitor INR - Continue lisinopril and tamsulosin once bp improves, continue rest of home medication regimen - Wean off of supplemental O2 as tolerated - Follow up arterial doppler - Follow up kidney ultrasound Diet: Heart healthy diet DVT prophylaxis: Warfarin with supratherapeutic INR, no mechanical DVT prophylaxis given PVD and lower extremity ulcers CODE STATUS: DNR/DNI Problem List: 1. Sepsis 2. Cellulitis 3. Foot ulcer Pain Ratin Pain Location: n/a Pain Goal: Remain pain free Pain Plan: prn Tomorrow's Labs & Rationales: cbc bep inr Rae Sheikh MD 01/21/18 1300: Attending MD Review Statement Attending Statement Attending MD Statement: examined this patient, discuss w/resident/PA/PHARMACY DISTRICT MANAGER, agreed w/resident/PA/PHARMACY DISTRICT MANAGER, reviewed EMR data (avail), discussed with nursing, discussed with case mgmt, amended to note Attending Assessment/Plan: Patient seen and examined. No issues overnight reported by nursing staff. Remains afebrile and hemodynamically stable. Resting comfortably and not in any acute distress. Blood pressure has remained stable. No further episodes of fever. White cell count remains within normal limits. Patient offers no complaints this morning. Patient was septic on presentation evidenced by his fever and hypotension, these have since improved. Source of his infection appear multiple pleura at present. He has chronic nonhealing ulcers on the left foot with mild discharge. He has a positive urine culture however the significance is unclear given his chronic indwelling Hill catheter. There is also concern for possible underlying osteomyelitis. Recommendations: -Obtain renal sonogram to rule out pyelonephritis on imaging. -Follow-up results of MRI. -Continue antibiotic course with Zosyn pending results of above. -Obtain arterial Dopplers to rule out peripheral arterial disease contributing to his nonhealing foot ulcers. -Wound care per recommendation of Isacc Campbell MD.
[2018-01-21 08:19] LABS: PT 33.7 SEC (9.4-12.5)
[2018-01-21 08:27] LABS: ABSOLUTE BASOPHIL COUNT 0 /CUMM (0.0-0.2); ABSOLUTE EOSINOPHIL COUNT 0.5 /CUMM (0.0-0.7); ABSOLUTE GRANULOCYTE CT 3.5 /CUMM (1.4-6.5); ABSOLUTE LYMPH COUNT 0.7 /CUMM (1.2-3.4); ABSOLUTE MONOCYTE COUNT 0.5 /CUMM (0.10-0.60); BASOPHIL % 0.9 % (0.0-2.0); EOSINOPHIL % 9.1 % (0-5); GRANULOCYTE % 67.5 % (42.2-75.2); HEMATOCRIT 34.2 % (42-52); MEAN CORPUSCULAR HGB 27.5 PG (27.0-31.0); MEAN CORPUSCULAR HGB CONC 33.2 G/DL (33.0-37.0); MEAN CORPUSCULAR VOLUME 82.8 FL (80.0-94.0); MEAN PLATELET VOLUME 7.4 FL (7.4-10.4); PLATELET COUNT 311 /CUMM (130-400); RBC DISTRIBUTION WIDTH 15.5 % (11.5-14.5); RED BLOOD CELL CT 4.13 /CUMM (4.70-6.10); WHITE BLOOD CELL COUNT 5.2 /CUMM (4.8-10.8)
--- NOTE | 2018-01-21 10:55 | PN- Wound Care ---
Subjective Subjective: Patient feels well MRI is pending. Objective Vital Signs and I&Os Vital Signs Result Date Time Pulse Ox 93 01/22 620 B/P 98/50 01/22 620 O2 Delivery Nasal Cannula 01/22 620 Temp 98.4 01/22 620 Pulse 87 01/21 0620 Resp 18 01/22 620 O2 Flow Rate 2.0L 01/21 0000 Intake & Output 01/21 0000 01/20 1600 01/20 0800 Intake Total 500 840 Output Total 1250 950 600 Balance -750 -950 240 Intake, IV 300 600 Intake, Oral 200 240 Number 2 Bowel Movements Output, Urine 1250 950 600 Patient 277 lb Weight Weight Bed scale Measurement Method [place] of left lower extremity venous stasis ulcers is unchanged. Impression/Plan Impression/Plan Impression/Plan: 72-year-old gentleman essentially wheelchair-bound chronic venous stasis ulcers admitted with fever. MRI is to be done today to exclude osteomyelitis. He is currently being treated for a urinary tract infection secondary to indwelling suprapubic catheter. Patient needs aggressive leg elevation and continue Aquacel silver dressings daily with wound cleansing
--- NOTE | 2018-01-21 12:36 | PN- Infect Dx ---
Subjective Subjective: Afebrile without complaints Objective Last 24 Hrs of Vital Signs/I&O Vital Signs Date Time Temp Pulse Resp B/P B/P Pulse O2 O2 Flow FiO2 Mean Ox Delivery Rate 01/21 0620 98.4 87 18 98/50 93 Nasal Cannula 01/21 0000 Nasal 2.0L Cannula 01/20 2244 98.3 90 20 106/62 93 Nasal 2.0L Cannula 01/20 1339 97.5 72 20 117/68 95 Nasal Cannula Intake & Output 01/21 1600 01/21 0800 01/21 0000 Intake Total 800 500 Output Total 723 069 8987 Balance -500 -100 -750 Intake, IV 600 300 Intake, Oral 200 200 Number 2 Bowel Movements Output, Urine 798 065 5510 Physical Exam Other Physical Findings: He appears comfortable in no acute distress Lungs are clear Heart irregular rhythm with no murmur Abdomen is soft, nontender with positive bowel sounds; suprapubic tube in place with no drainage noted Back no CVA tenderness Extremities left foot/ankle dressing intact Results Last 24 Hours of Lab Results: Laboratory Tests 01/21 0748 Chemistry Sodium (137 - 145 mmol/L) 143 Potassium (3.5 - 5.1 mmol/L) 3.5 Chloride (98 - 107 mmol/L) 109 H Carbon Dioxide (22 - 30 mmol/L) 25 Anion Gap (5 - 16) 9 BUN (9 - 20 mg/dL) 11 Creatinine (0.7 - 1.2 mg/dL) 1.0 Estimated GFR (>60 ml/min) > 60 BUN/Creatinine Ratio (7 - 25 %) 11.0 Coagulation PT (9.4 - 12.5 SEC) 33.7 H INR (0.90 - 1.17) 3.06 H Hematology CBC w Diff NO MAN DIFF REQ WBC (4.8 - 10.8 /CUMM) 5.2 RBC (4.70 - 6.10 /CUMM) 4.13 L Hgb (14.0 - 18.0 G/DL) 11.3 L Hct (42 - 52 %) 34.2 L MCV (80.0 - 94.0 FL) 82.8 MCH (27.0 - 31.0 PG) 27.5 MCHC (33.0 - 37.0 G/DL) 33.2 RDW (11.5 - 14.5 %) 15.5 H Plt Count (130 - 400 /CUMM) 311 MPV (7.4 - 10.4 FL) 7.4 Gran % (42.2 - 75.2 %) 67.5 Lymphocytes % (20.5 - 51.1 %) 12.8 L Monocytes % (1.7 - 9.3 %) 9.7 H Eosinophils % (0 - 5 %) 9.1 H Basophils % (0.0 - 2.0 %) 0.9 Absolute Granulocytes (1.4 - 6.5 /CUMM) 3.5 Absolute Lymphocytes (1.2 - 3.4 /CUMM) 0.7 L Absolute Monocytes (0.10 - 0.60 /CUMM) 0.5 Absolute Eosinophils (0.0 - 0.7 /CUMM) 0.5 Absolute Basophils (0.0 - 0.2 /CUMM) 0 Last 24 Hours of Rito Results: Blood cultures 2 January 19 negative Urine culture January 19 greater than 100,000 colonies of Proteus resistant to Ampicillin, Ciprofloxacin and Nitrofurantoin and intermediate to Cefazolin and Unasyn Assessment/Plan ID Impression: Improved, with no further fevers and with his white blood cell count remaining normal, on Zosyn, Day 2 of treatment for probable sepsis of urologic origin, with his urine culture positive for Proteus. He underwent MRI of the left ankle earlier today to rule out osteomyelitis, with the results pending. Suggestion: 1. Renal ultrasound 2. Follow-up MRI of the left ankle 3. Further management of his left ankle wound per Podiatry 4. Discontinue Zosyn 5. Begin Augmentin 875 mg p.o. every 12 hours
[2018-01-21 17:43] VITALS: BP 100/60
--- NOTE | 2018-01-21 18:43 | MRI REPORT ---
EXAMINATION: MRI FOOT WITHOUT CONTRAST, LEFT CLINICAL INFORMATION: 72-year-old male with infected foot ulcer. Evaluate for osteomyelitis. COMPARISON: MR images of the foot from 10/16/2017. Radiographs of the foot from 01/19/2018. TECHNIQUE: MR images of the left foot were obtained on a high-field 1.5 Latia magnet using standard sequences. FINDINGS: The MR technologist reports that the patient's ulcer was at the level of the heel. Therefore, images are focused on the proximal aspect of the foot. Some of the imaging sequences are degraded in quality by patient motion. There is diffuse edema of subcutaneous tissues of the ankle and foot without focal organized fluid collection. There appears to be a superficial ulcer of the medial heel and possibly dorsal to the calcaneus, as well. No evidence of ulcer extension to the calcaneal cortex. The calcaneus has well preserved fatty marrow signal intensity on T1-weighted images. No evidence of osteomyelitis. A small amount fluid is present within the ankle and subtalar joint. The talar dome is well-positioned within the intact ankle mortise. The visualized Achilles tendon has a normal insertion onto the calcaneus. The other visualized tendons about the ankle are intact. There are prominent enthesophytes of the posterior and plantar surfaces of the calcaneus. Again noted is thickening of the central cord of plantar aponeurosis at its calcaneal attachment . There is chronic, diffuse atrophy and fatty replacement of muscles of the examined lower extremity and foot. On the fat-suppressed sequences, edema-like signal intensity is most pronounced within the flexor digitorum brevis muscle; this is unchanged compared to 10/16/2017. These findings are likely the sequela of chronic neuropathy. IMPRESSION: 1. Nonspecific, diffuse edema of subcutaneous tissues tissues of the ankle and foot. No evidence of soft tissue abscess on these noncontrast images. 2. No evidence of calcaneal osteomyelitis. 3. Chronic plantar fasciosis. 4. Small ankle joint effusion, similar compared to 10/16/2017.
--- NOTE | 2018-01-21 19:55 | ULTRASOUND REPORT ---
EXAMINATION: US RETROPERITONEAL COMPLETE (RENAL) CLINICAL INFORMATION: Urinary tract infection, rule out obstruction. COMPARISON: None TECHNIQUE: Real-time imaging of the kidneys and bladder. FINDINGS: RIGHT KIDNEY: 11.6 x 6.3 x 4.9 cm (SAG x AP x TRV). The kidney is normal in size, contour, and echogenicity. Renal cortical thickness is normal. No calculi or focal parenchymal lesions are identified. No hydronephrosis. LEFT KIDNEY: 7.3 x 5.8 x 4.1 cm (SAG x AP x TRV). Left kidney is suboptimally visualized due to patient body habitus and bowel gas. The kidney appears grossly normal in size, contour, and echogenicity. Renal cortical thickness is normal. No calculi or focal parenchymal lesions are identified. No hydronephrosis. BLADDER: Decompressed with a Hill catheter and not adequately evaluated. IMPRESSION: Suboptimal visualization of the left kidney. No evidence of hydronephrosis bilaterally.
--- NOTE | 2018-01-21 20:33 | ULTRASOUND REPORT ---
EXAMINATION: US DUPLEX LOWER EXTREMITY ARTERY/GRAFT LIMITED, LEFT CLINICAL INFORMATION: Left leg ulcer. COMPARISON: None TECHNIQUE: Pulsed color Doppler imaging of major vessels of left lower extremity was performed using a linear 9 MHz transducer. FINDINGS: Common femoral artery is widely patent and has normal waveform with peak systolic velocity of 83 cm/sec. Profunda femoris artery has a normal waveform, peak velocity of 47 cm/sec. Within proximal thigh, superficial femoral artery has a normal triphasic waveform, peak velocity of 99 cm/sec. Within the mid thigh, the SFA has a triphasic waveform, peak velocity of 88 cm/sec. The distal SFA appears widely patent with peak systolic velocity of 82 cm/sec. Popliteal artery has normal, triphasic waveforms with peak systolic velocity of 87 cm/sec, proximally and 74 cm/sec, distally. The posterior tibial artery has an above baseline high acceleration, monophasic waveform with peak velocities of 68, 94 and 97 cm/sec within the proximal, mid and distal third of the leg, respectively. The peroneal artery appears occluded. The anterior tibial artery has a biphasic waveform with peak velocities of 51 cm/sec proximally, 66 cm/sec in the mid leg, and 84 cm/sec distally. Dorsalis pedis could not be evaluated (foot bandaged). Incidentally detected is noncompressible thrombus within the left common femoral vein and visualized superficial femoral vein of the proximal and mid thigh. A complete venous ultrasound exam was not performed. Patient reportedly has history of deep vein thrombosis and IVC filter placement. IMPRESSION: 1. No significant findings within the left common femoral, superficial femoral or popliteal arteries, which appear widely patent on this ultrasound examination. 2. There is evidence of peripheral vascular disease as manifest by abnormal waveforms within the examined peripheral vessels of the leg, and the peroneal artery appears occluded. 3. Incidentally detected is noncompressible, occlusive thrombus of the common femoral and superficial femoral veins. The test result regarding the venous thrombosis was discussed with Dr. Ava Cho, and it was ascertained that the content of the findings was understood at the time of the direct communication.
[2018-01-21 22:11] VITALS: BP 120/60
[2018-01-22 06:35] VITALS: BP 110/64
--- NOTE | 2018-01-22 07:07 | PN- Housestaff ---
Yaima ABREU,Valentina 01/22/18 0707: Subjective Follow-up For: Sepsis of urological origin - proteius mirabilis Left foot ulcer - ruled out osteomyelitis DVT Arterial occlusion of Left lower extremity Subjective: Patient was seen and examined today. Resting comfortably. No complaints today. Reports he slept well. Denies any fever/chills, abdominal pain, pain at site of foely, or foot pain. No acute events overnight reported. Review of Systems Constitutional: Reports: see HPI. Objective Last 24 Hrs of Vital Signs/I&O Vital Signs Date Time Temp Pulse Resp B/P B/P Pulse O2 O2 Flow FiO2 Mean Ox Delivery Rate 01/22 2205 98.3 70 21 120/70 94 Nasal Cannula 01/22 1927 Nasal 1.5L Cannula 01/22 1600 Nasal 1.0L Cannula 01/22 1451 97.9 65 21 110/70 93 Nasal Cannula 01/22 0800 92 Nasal 1.0L Cannula 01/22 0635 97.0 61 18 110/64 92 Nasal 2.0L Cannula 01/21 2211 98.1 78 19 120/60 97 Nasal Cannula Intake & Output 01/22 1600 01/22 0800 01/22 0000 Intake Total 120 450 Output Total 1000 1300 1350 Balance -1000 -1180 -900 Intake, Oral 120 450 Number 1 Bowel Movements Output, Urine 1000 1300 1350 Physical Exam General Appearance: Alert, Cooperative, No Acute Distress Other Physical Findings: HEENT: Atraumatic, Mucous Membr. moist/pink Cardiovascular: Regular Rate, Normal S1, Normal S2 Lungs: Clear to Auscultation, Normal Air Movement Abdomen: Normal Bowel Sounds, Soft, No Tenderness, suprapubic catheter in place- mild erythema around site Neurological: Normal Speech, Cranial Nerves 3-12 NL, alert and oriented x 3 Extremities: left lower extremity ulcer currently wrapped in bandages Vascular: poorly palpable pulses Current Medications: Current Medications Sig/Carmelita Start time Last Medication Dose Route Stop Time Status Admin Amoxicillin/ 875 MG Q12 01/21 2100 AC 01/22 Clavulanate Potassium PO 1950 Escitalopram Oxalate 10 MG DAILY 01/20 900 AC 01/22 PO 09 Levothyroxine Sodium 0.075 MG DAILY 01/20 09 AC 01/22 PO 09 Montelukast Sodium 10 MG DAILY 01/20 09 AC 01/22 PO 09 Pravastatin Sodium 20 MG 1700 01/20 1700 AC 01/22 PO 1714 Ropinirole HCl 0.5 MG QPM 01/20 2100 AC 01/22 PO 195 Last 24 Hrs of Lab/Rito Results Last 24 Hrs of Labs/Mics: Laboratory Tests 01/22/18 0734: Anion Gap 9, Estimated GFR > 60, BUN/Creatinine Ratio 10.0, PT 29.2 H, INR 2.65 H, CBC w Diff NO MAN DIFF REQ, RBC 4.48 L, MCV 82.6, MCH 27.0, MCHC 32.7 L, RDW 16.2 H, MPV 7.3 L, Gran % 67.8, Lymphocytes % 13.8 L, Monocytes % 9.4 H, Eosinophils % 8.4 H, Basophils % 0.6, Absolute Granulocytes 3.8, Absolute Lymphocytes 0.8 L, Absolute Monocytes 0.5, Absolute Eosinophils 0.5, Absolute Basophils 0 Lines/Diet/Fluids Catheters/Tubes: teixeira (suprapubic catheter) Teixeira Still Needed? Yes Assessment/Plan Assessment: Patient is a 72-year-old male with a PMH significant for PVD, DVT status post IVC filter, urinary retention secondary to obstructive uropathy with suprapubic catheter placed, CVA, hypothyroidism, paroxysmal A. fib, CKD now resolved, chronic venous stasis ulcers who presents to the [facility] ED from [facility] for evaluation of a fever. T-max of 102.9 prior to presentation, and reports subjective chills. Vital signs on presentation: T103, P107, RR 18, BP 110/58, pulse ox 93% on 2 L O2 nasal cannula Labs: WBC 8.2, 13.4/40.9, platelets 392, ESR 92 sodium 139, potassium 2.4, chloride 100, CO2 27, BUN 21, creatinine 1.1, glucose 164, lactic acid was repleted 8, troponin <0.01, INR 3.2 Problems 1. Sepsis secondary to suprapubic catheter infection with urine culture growing proteus mirabilis, ID on board, antibiotics narrowed- discontinued Zosyn and started on Augmentin 875mg BID on 01/21 2. Left lower extremity ulcer - nonhealing, ruled out osteomyelitis with negative MRI, evaluated by podiatry, debridement of ulcer planned for tomorrow, 01/23 3. PAD with arterial occlusion - evaluated by vascular, CT angio ordered 4. DVT in left lower extremity - apparently has had previous clots in this extremity, this may be a chronic, currently on coumadin and has an IVC filter in place 5. Supratherapeutic INR - resolved 6. Hypokalemia- resolved 7. Chronic medical problems including chronic venous stasis ulcers, paroxysmal A. fib, PVD, DVT, hypothyroidism, history of CVA Plan - Admitted to general medicine floor - Continue Augmentin - Continue to follow blood cultures - ID, wound and podiatry on board - Vascular consulted for further recommendations of arterial disease - CT angio of lower extremity - NPO for possible debridement of left lower extremity ulcer - Monitor and dose coumadin - Continue lisinopril and tamsulosin once bp improves, continue rest of home medication regimen - Wean off of supplemental O2 as tolerated - Follow up arterial doppler - Follow up kidney ultrasound Diet: Heart healthy diet DVT prophylaxis: Warfarin with supratherapeutic INR, no mechanical DVT prophylaxis given PVD and lower extremity ulcers CODE STATUS: DNR/DNI Problem List: 1. Sepsis 2. Foot ulcer Pain Ratin Pain Location: n/a Pain Goal: Remain pain free Pain Plan: prn Tomorrow's Labs & Rationales: cbc inr Rae Sheikh MD 01/22/18 1213: Attending MD Review Statement Attending Statement Attending MD Statement: examined this patient, discuss w/resident/PA/VENDING TECHNICIAN, agreed w/resident/PA/VENDING TECHNICIAN, reviewed EMR data (avail), discussed with nursing, discussed with case mgmt, amended to note Attending Assessment/Plan: Patient seen and examined. No issues overnight reported by nursing staff. Remains afebrile and hemodynamically stable. Resting comfortably and not in any acute distress. No new complaints from the patient. I had a detailed conversation with patient's vascular surgeon Dr. Angeles. Patient's chronic leg ulcers are nearly secondary to venous stasis. He has a history of chronic DVT of the left lower extremity. He attempted opening up the occluded veins with this tends to help relieve leg swelling. This however was not successful. Patient did have arterial Dopplers done in the office as an outpatient a few months ago with no evidence of significant arterial disease. However given current findings on Doppler done yesterday he is recommending CT angiogram of the left lower extremity. Case was discussed with the podiatry service today. Recommendations to take the patient to the operating room tomorrow for debridement of his left lower extremity wounds. Plan: -Antibiotic therapy with Augmentin for his urinary tract infection. No evidence of pyelonephritis on imaging. No evidence of renal obstructive disease. Follow -up with the ID service for antibiotic duration. -Osteomyelitis has been ruled out. -N.p.o. past midnight for debridement of his chronic nonhealing left lower extremity wounds. No evidence of cellulitis presently. -Nursing staff reports that patient has required low flow oxygen supplementation intermittently. Currently saturating 97% on 1 L of oxygen. X-ray on presentation showed lower lobe infiltrate is likely secondary to atelectasis. This infiltrate resolved on repeat imaging. Recommend incentive spirometry.
--- NOTE | 2018-01-22 07:47 | Discharge Summary ---
Visit Information Visit Dates Admission Date: 01/19/18 Discharge Date: 01/24/2018 Hospital Course Course Attending Physician: Rae Sheikh MD Primary Care Physician: Allie ABREU,Bennett Sevilla Hospital Course: This is a 72-year-old male with past medical history of hypertension, paroxysmal atrial fibrillation, left leg DVT status post IVC filter on Coumadin, urinary retention secondary to obstructive uropathy status post suprapubic catheter, CVA , chronic venous stasis, peripheral vascular disease with chronic nonhealing ulcers to the left foot for which he follows up with the wound care at [place], was sent in from [facility] legs were evaluation of fever 102.9 and worsening erythema and discharge from the left foot wound on 01/19/2018. On presentation his vitals were T-max of 103, heart rate from 80-110, blood pressure initially was 128/60 however he became hypotensive to 86/56, which gradually resolved with IV hydration, saturating 95% on 2 L. On presentation he was alert oriented 3, was not in any acute distress, had dry mucosa, neck supple, chest clear, he had a S1-S2 with no murmurs, was tachycardic, abdomen was soft nontender. Left foot showed multiple ulcers on the medial and lateral aspect with surrounding erythema and serous discharge, warmth positive, tenderness positive. Peripheral pulses were difficult to palpate due to edema. Suprapubic catheter site was noted to have some purulent discharge, Hill was draining urine clearly. Relevant lab he did not have any leukocytosis, H/H was 13.4/40.9, ESR was 92, INR was 3.21, potassium was low at 3.4, BUN/creatinine 21/1.1, glucose of 164, lactic acid of 1.8, troponin were negative. UA showed cloudy appearance with 25-50 white blood cells, many bacteria and large leukocyte esterase. Chest x-ray showed patchy opacity of the left lung base, retrocardiac area possible infiltrate versus atelectasis, on lateral film there was no opacification seen in the left lung base, there was mild cardiomegaly without congestion. Left foot x-ray did not show any periosteal elevation or bony erosive changes or gas, there was moderate soft tissue swelling along the plantar aspect, mild degenerative changes dorsal intertarsal joints. EKG showed sinus tachycardia with PVCs and incomplete right bundle branch block, QTC of 436. #1 sepsis likely secondary to suprapubic catheter versus lower extremity cellulitis or pneumonia. * Initially on admission patient had a fever with tachycardia, met SIRS criteria , was evaluated by infectious disease, podiatry and vascular for possible osteomyelitis of the left foot. * He received 1 dose of IV vancomycin while in the emergency department and was started on Zosyn to cover for possible Pseudomonas with previous history of cultures growing Pseudomonas resistant to ceftaz. * He had defervesced overnight after day 1. * Vancomycin was discontinued after the first dose, Zosyn was continued pending final urine, blood cultures along with MRI of the left ankle. * Urinalysis was also positive, however with the background of suprapubic catheter and recurrent UTI, this intially was thought to be colonization, urine cultures were followed, they grew proteus mirabilis with following sensitivities. * 1. PROTEUS MIRABILIS RX AB ------ -- AMPICILLIN R CEFAZOLIN I AMOXICILLIN/CLAVULINIC ACID S AMPICILLIN/SULBACTAM I CEFOXITIN S CEFTAZIDIME S CEFTRIAXONE S CIPROFLOXACIN R GENTAMICIN S NITROFURANTOIN R TRIMETHOPRIM/SULFAMETHOXAZOLE S * MRI of the left foot with and without gadolinium showed nonspecific, diffuse edema of the subcutaneous tissue of the ankle and foot with no evidence of abscess, no evidence of calcaneal osteomyelitis, chronic plantar fasciosis, small ankle joint effusion. * Zosyn was therefore discontinued and Mr. Mora was began on Augmentin 875 mg p.o. every 12 hours for total of 10 days starting 01/23/2018 * Wound care was on board, aggressive leg elevation with Aquacel silver dressing were continued on daily basis. * The MRI of his left ankle was negative for osteomyelitis, but he was scheduled for debridement of both the medial and lateral malleolar ulcers on january, please look proccedure section for detailed reprot of the OR. # PVD * Lower extremity arterial Doppler was done and showed the following findings: * 1. No significant findings within the left common femoral, superficial femoral or popliteal arteries, which appear widely patent on this ultrasound examination.2. There is evidence of peripheral vascular disease as manifest by abnormal waveforms within the examined peripheral vessels of the leg, and the peroneal artery appears occluded.3. Incidentally detected is noncompressible, occlusive thrombus of the common femoral and superficial femoral veins. * Vascular surgery was consulted who said there was no evidence of significant peripheral arerial disease and he needs good wound care and compression and continue coumadin. # DVT status post IVC filter on Coumadin. * On presentation Mr. Mora had a supratherapeutic INR, therefore Coumadin was held while monitoring the INR. * Once INR was therapeutic Coumadin was restarted again. * On day of discharge, INR was mildly subtherapeutic today however as patient presented with supratherapeutic INR on admission that reamiend elevated for a few days despite holding his Coumadin, she was continue on the reduced dose of 5 mg daily. Instructinos were provided to monitor INR regularly at the [facility] and Coumadin dose adjusted accordingly. # Hypokalemia. * He was found to be hypokalemic, potassium was monitored daily and repleted as needed to maintain above 4 # Hypertension. * Initially on presentation, Mr. Mora had low blood pressure which improved by IV hydration and therefore all his antihypertensive medications were held. * Once blood pressure was more stable, the home medication regimen was restarted. His other chronic medical problems were treated on home medications namely hypothyroidism, CVA, chronic venous stasis ulcer, paroxysmal A. fib and so on. Allergies: Coded Allergies: No Known Allergies (01/19/18) Significant Procedures: Operative/Inv Procedure Report Surgery Date: 01/23/18 Name of Procedure: 1 open incision and drainage deep to the deep fascia with exposure of the extensor tendon and tendon sheath multiple sites medial lateral left ankle 2 intraoperative application of negative pressure wound therapy 3 intraoperative administration of ankle block anesthesia 4 excisional debridement Pre-Operative Diagnosis: 1 open comminuted necrotic wounds medial and lateral left ankle 2 chronic venous insufficiency left lower extremity Post-Operative Diagnosis: The same Estimated Blood Loss: less than 50ml Surgeon/Seafood Technology Specialist: AGUILA FARMER DPM Anesthesia: moderate sedation, block Operative/Procedure Note Note: After obtaining informed consent the patient was brought to the operating room and placed on the operating table in supine position. The patient was then securely fastened to the operating table utilizing safety belt. After administration of IV sedation, 10 mL of 0.5% Marcaine plain was infiltrated about the patient's left ankle. The left foot and ankle within scrubbed, prepped and draped in usual aseptic manner. Attention directed to the medial lateral left ankles, where a large full-thickness chronic was identified. A 15 blade was utilized to sharply revised skin margins medially and laterally. The dissection was then carried down deep to the D fashion with exposure of the flexor tendon and tendon sheath multiple sites, both proximally and distally. All necrotic, nonviable infected tissue sharply evacuated wound bed. The open wounds were then irrigated with 3 L of normal sterile saline infused with 50,000 units of bacitracin. Following this, the foot was redraped and the surgeon's top gloves were changed clean gloves. Any bleeding vessels identified were cauterized or ligated as encountered. Next, they to pressure wound therapy was placed medially and laterally. This followed by the application of Kerlix and an Jack wrap. The patient was noted to tolerate both procedure and anesthesia well and the patient was transported from the operating room to recovery with vital signs stable best assess intact all digits left foot. DICTATED BY: Aguila Farmer DPM DATE/TIME DICTATED:01/23/181318 INTERNET NETWORK SPECIALIST:NANETTE DATE/TIME TRANSCRIBED:01/23/181318 REPORT NUMBER:[id number] CONFIDENTIAL, DO NOT COPY WITHOUT APPROPRIATE AUTHORIZATION. <Electronically signed by Aguila Farmer DPM> 01/23/18 1321 SERVICE DATE: 01/19/18- EXAM TYPE: RAD - XRY-CHEST XRAY, TWO VIEWS EXAMINATION: XR CHEST CLINICAL INFORMATION: Septic with productive cough and green sputum. COMPARISON: Chest 01/19/2018. TECHNIQUE: 2 views of the chest were obtained. FINDINGS: The lungs are in moderate inspiration with no acute process seen. No patchy opacities seen in the left lung base. The heart size is enlarged. Pulmonary vascularity is normal. No gross bony abnormality seen. IMPRESSION: On the lateral view there is no opacification seen in the left lung base retrocardiac area. Mild cardiomegaly without congestion. SERVICE DATE: 01/19/18 EXAM TYPE: RAD - XRY-PORTABLE CHEST XRAY EXAMINATION: XR PORTABLE CHEST CLINICAL INFORMATION: Fever COMPARISON: None TECHNIQUE: Portable frontal view of the chest was obtained. FINDINGS: The lungs are moderately expanded with patchy opacity left lung base retrocardiac region. Rest of lungs are clear.. Heart size is borderline with normal pulmonary vascularity. No gross bony abnormality seen. IMPRESSION: Patchy opacity left lung base retrocardiac area question infiltrate versus atelectasis. Recommend lateral view. SERVICE DATE: 01/19/18 EXAM TYPE: RAD - XRY-FOOT COMPLETE, LEFT EXAMINATION: XR FOOT, LEFT CLINICAL INFORMATION: Infected foot ulcer. COMPARISON: None TECHNIQUE: AP, lateral, and oblique views of the left foot. FINDINGS: There is moderate soft tissue swelling along the plantar aspect of distal metatarsals but no bony erosive changes to suggest any osteomyelitis. No periosteal thickening elevation. No soft tissue gas seen to suggest any abscess. The ankle mortise and subtalar joints are normal. There is mild dorsal intertarsal spurring on lateral view suggestive of degenerative arthritis. IMPRESSION: No visible periosteal elevation, bony erosive changes or gas seen in the plantar soft tissues of the digits. There is however moderate soft tissue swelling along the plantar aspect. Mild degenerative changes dorsal intertarsal joints. SERVICE DATE: 01/21/18141 EXAM TYPE: US - US-RENAL/KIDNEY EXAMINATION: US RETROPERITONEAL COMPLETE (RENAL) CLINICAL INFORMATION: Urinary tract infection, rule out obstruction. COMPARISON: None TECHNIQUE: Real-time imaging of the kidneys and bladder. FINDINGS: RIGHT KIDNEY: 11.6 x 6.3 x 4.9 cm (SAG x AP x TRV). The kidney is normal in size, contour, and echogenicity. Renal cortical thickness is normal. No calculi or focal parenchymal lesions are identified. No hydronephrosis. LEFT KIDNEY: 7.3 x 5.8 x 4.1 cm (SAG x AP x TRV). Left kidney is suboptimally visualized due to patient body habitus and bowel gas. The kidney appears grossly normal in size, contour, and echogenicity. Renal cortical thickness is normal. No calculi or focal parenchymal lesions are identified. No hydronephrosis. BLADDER: Decompressed with a Hill catheter and not adequately evaluated. IMPRESSION: Suboptimal visualization of the left kidney. No evidence of hydronephrosis bilaterally. SERVICE DATE: 01/21/18160 EXAM TYPE: MRI - MRI-LT FOOT W/O & W DANIELLE EXAMINATION: MRI FOOT WITHOUT CONTRAST, LEFT CLINICAL INFORMATION: 72-year-old male with infected foot ulcer. Evaluate for osteomyelitis. COMPARISON: MR images of the foot from 10/16/2017. Radiographs of the foot from 01/19/2018. TECHNIQUE: MR images of the left foot were obtained on a high-field 1.5 Latia magnet using standard sequences. FINDINGS: The MR technologist reports that the patient's ulcer was at the level of the heel. Therefore, images are focused on the proximal aspect of the foot. Some of the imaging sequences are degraded in quality by patient motion. There is diffuse edema of subcutaneous tissues of the ankle and foot without focal organized fluid collection. There appears to be a superficial ulcer of the medial heel and possibly dorsal to the calcaneus, as well. No evidence of ulcer extension to the calcaneal cortex. The calcaneus has well preserved fatty marrow signal intensity on T1-weighted images. No evidence of osteomyelitis. A small amount fluid is present within the ankle and subtalar joint. The talar dome is well-positioned within the intact ankle mortise. The visualized Achilles tendon has a normal insertion onto the calcaneus. The other visualized tendons about the ankle are intact. There are prominent enthesophytes of the posterior and plantar surfaces of the calcaneus. Again noted is thickening of the central cord of plantar aponeurosis at its calcaneal attachment . There is chronic, diffuse atrophy and fatty replacement of muscles of the examined lower extremity and foot. On the fat-suppressed sequences, edema-like signal intensity is most pronounced within the flexor digitorum brevis muscle; this is unchanged compared to 10/16/2017. These findings are likely the sequela of chronic neuropathy. IMPRESSION: 1. Nonspecific, diffuse edema of subcutaneous tissues tissues of the ankle and foot. No evidence of soft tissue abscess on these noncontrast images. 2. No evidence of calcaneal osteomyelitis. 3. Chronic plantar fasciosis. 4. Small ankle joint effusion, similar compared to 10/16/2017. SERVICE DATE: 01/21/18 EXAM TYPE: US - US-DUPLEX SCAN LOWER EXT ARTER EXAMINATION: US DUPLEX LOWER EXTREMITY ARTERY/GRAFT LIMITED, LEFT CLINICAL INFORMATION: Left leg ulcer. COMPARISON: None TECHNIQUE: Pulsed color Doppler imaging of major vessels of left lower extremity was performed using a linear 9 MHz transducer. FINDINGS: Common femoral artery is widely patent and has normal waveform with peak systolic velocity of 83 cm/sec. Profunda femoris artery has a normal waveform, peak velocity of 47 cm/sec. Within proximal thigh, superficial femoral artery has a normal triphasic waveform, peak velocity of 99 cm/sec. Within the mid thigh, the SFA has a triphasic waveform, peak velocity of 88 cm/sec. The distal SFA appears widely patent with peak systolic velocity of 82 cm/sec. Popliteal artery has normal, triphasic waveforms with peak systolic velocity of 87 cm/sec, proximally and 74 cm/sec, distally. The posterior tibial artery has an above baseline high acceleration, monophasic waveform with peak velocities of 68, 94 and 97 cm/sec within the proximal, mid and distal third of the leg, respectively. The peroneal artery appears occluded. The anterior tibial artery has a biphasic waveform with peak velocities of 51 cm/sec proximally, 66 cm/sec in the mid leg, and 84 cm/sec distally. Dorsalis pedis could not be evaluated (foot bandaged). Incidentally detected is noncompressible thrombus within the left common femoral vein and visualized superficial femoral vein of the proximal and mid thigh. A complete venous ultrasound exam was not performed. Patient reportedly has history of deep vein thrombosis and IVC filter placement. IMPRESSION: 1. No significant findings within the left common femoral, superficial femoral or popliteal arteries, which appear widely patent on this ultrasound examination. 2. There is evidence of peripheral vascular disease as manifest by abnormal waveforms within the examined peripheral vessels of the leg, and the peroneal artery appears occluded. 3. Incidentally detected is noncompressible, occlusive thrombus of the common femoral and superficial femoral veins. The test result regarding the venous thrombosis was discussed with Dr. Ava Cho, and it was ascertained that the content of the findings was understood at the time of the direct communication. Disposition Summary Disposition Principal Diagnosis: Sepsis of urological origin Additional Diagnosis: Left lower extremity ulcers, osteomyelitis ruled out. Chronic left foot venous stasis ulcers. Chronic left lower extremity deep vein thrombosis. Atrial fibrillation on anticoagulant Coumadin. Discharge Disposition: SNF Discharge Instructions General Discharge Information Code Status: Full Code Patient's Diet: Heart healthy Diet Patient's Activity: as tolerated. Follow-Up Instructions/Appts: -Patient to follow-up with his wound care service as an outpatient. -Patient to follow-up with his vascular surgery service as an outpatient. -INR is mildly subtherapeutic today. Patient did present with supratherapeutic INR remain elevated for a few days despite holding his Coumadin. Continue on the reduced dose of 5 mg daily. INR should be monitored regularly at the senior living facility and Coumadin dose adjusted accordingly. Medications at Discharge Discharge Medications: Stop taking the following medications: Warfarin Sodium (Warfarin Sodium) 6 MG TABLET ORAL DAILY Qty = 3 Continue taking these medications: Pravastatin Sodium (Pravastatin Sodium) 40 MG TABLET 1 Tablet ORAL Every night Qty = 30 Comments: LAST TAKEN: 01/23/18 @ 5 PM Tamsulosin HCl (Tamsulosin HCl) 0.4 MG CAP.ER.24H 1 Capsule ORAL DAILY Qty = 30 Comments: NOT TAKEN IN HOSPITAL Furosemide (Furosemide) 40 MG TABLET 1 Tablet ORAL DAILY Qty = 14 Comments: NOT TAKEN IN HOSPITAL Escitalopram Oxalate (Escitalopram Oxalate) 10 MG TABLET 1 Tablet ORAL DAILY Qty = 30 Comments: LAST TAKEN: 01/24/18 @ 9 AM Levothyroxine Sodium (Levothyroxine Sodium) 75 MCG TABLET 1 Tablet ORAL DAILY Qty = 30 Comments: LAST TAKEN: 01/24/18 @ 9 AM Potassium Chloride (Potassium Chloride) 20 MEQ TAB.ER.PRT 1 Tablet ORAL DAILY Qty = 60 Comments: NO TAKEN IN HOSPITAL Montelukast Sodium (Montelukast Sodium) 10 MG TABLET 1 Tablet ORAL DAILY Qty = 30 Comments: LAST TAKEN: 01/24/18 @ 9 AM Ropinirole HCl (Ropinirole HCl) 0.5 MG TABLET 1 Tablet ORAL Every night Qty = 30 Comments: LAST TAKEN: 01/23/18 @ 8 PM Start taking the following new medications: Amoxicillin/Clavulanate Potass (Amox-Clav 875-125 MG Tablet) 875 MG-125 MG TABLET 1 Tablet ORAL TWICE DAILY Qty = 20 No Refills Comments: LAST TAKEN: 01/24/18 @ 9 AM Warfarin Sodium (Coumadin) 5 MG TABLET 1 Tablet ORAL DAILY Qty = 30 No Refills Comments: LAST TAKEN: 01/24/18 @ 5 PM (5 MG) Copies To: Karthik ABREU,Femi; Henrry ABREU,Isacc Barrios; Allie ABREU,Bennett Farmer DPM,Aguila; Octavio ABREU,Priyank Alexandra Attending MD Review Statement Documenting Attending: Aguilar ABREU,Rae Other Findings: Medically stable to be discharged today.
[2018-01-22 08:29] LABS: ABSOLUTE BASOPHIL COUNT 0 /CUMM (0.0-0.2); ABSOLUTE EOSINOPHIL COUNT 0.5 /CUMM (0.0-0.7); ABSOLUTE GRANULOCYTE CT 3.8 /CUMM (1.4-6.5); ABSOLUTE LYMPH COUNT 0.8 /CUMM (1.2-3.4); ABSOLUTE MONOCYTE COUNT 0.5 /CUMM (0.10-0.60); BASOPHIL % 0.6 % (0.0-2.0); EOSINOPHIL % 8.4 % (0-5); GRANULOCYTE % 67.8 % (42.2-75.2); MEAN CORPUSCULAR HGB CONC 32.7 G/DL (33.0-37.0); MEAN CORPUSCULAR VOLUME 82.6 FL (80.0-94.0); MEAN PLATELET VOLUME 7.3 FL (7.4-10.4); PLATELET COUNT 356 /CUMM (130-400); RBC DISTRIBUTION WIDTH 16.2 % (11.5-14.5); RED BLOOD CELL CT 4.48 /CUMM (4.70-6.10); WHITE BLOOD CELL COUNT 5.7 /CUMM (4.8-10.8)
[2018-01-22] MEDS ORDERED: AMOX-CLAV 875-1 EACH PO (08:32)
--- NOTE | 2018-01-22 08:37 | Patient Discharge Instructions ---
Discharge Instructions General Discharge Information Special Instructions: Please follow up with your PCP within one week of discharge. Diet Continue normal diet: No Recommended Diet: Heart Healthy Acute Coronary Syndrome Inclusion Criteria At DC or during hospital stay patient has or had the following: ACS DIAGNOSIS No Discharge Core Measures Meds if any: Prescribed or Continued at Discharge Meds if any: NOT Prescribed or Continued at Discharge Congestive Heart Failure Inclusion Criteria At DC or during hospital stay patient has or had the following: CHF DIAGNOSIS No Discharge Core Measures Meds if any: Prescribed or Continued at Discharge Meds if any: NOT Prescribed or Continued at Discharge Cerebrovascular accident Inclusion Criteria At DC or during hospital stay patient has or had the following: CVA/TIA Diagnosis No Discharge Core Measures Meds if any: Prescribed or Continued at Discharge Meds if any: NOT Prescribed or Continued at Discharge Venous thromboembolism Inclusion Criteria VTE Diagnosis No VTE Type NONE VTE Confirmed by (Test) NONE Discharge Core Measures - Per Current guidelines, there needs to be overlap - treatment for the first 5 days of Warfarin therapy. - If discharged on Warfarin prior to 5 days of - overlap therapy, the patient will need to be - assessed for post discharge needs including - *Post discharge parental anticoagulation - *Warfarin and/or parental anticoagulation education - *Follow up date to check INR post discharge At least 5 days overlap therapy as Inpatient No Meds if any: Prescribed or Continued at Discharge Note: Overlap Therapy is Warfarin and Anticoagulant Meds if any: NOT Prescribed or Continued at Discharge
[2018-01-22 08:43] LABS: PT 29.2 SEC (9.4-12.5)
--- NOTE | 2018-01-22 10:11 | PN- Wound Care ---
Subjective Subjective: Patient is comfortable with reduced drainage now with effective leg elevation. MRI does not show evidence of osteomyelitis. There evidence of both chronic venous obstruction and distal peripheral vascular disease. Objective Vital Signs and I&Os Vital Signs Result Date Time Pulse Ox 92 01/22 635 B/P 110/64 01/22 0635 O2 Delivery Nasal Cannula 01/22 635 O2 Flow Rate 2.0L 01/22 635 Temp 97.0 01/22 0635 Pulse 61 01/22 0635 Resp 18 01/22 0635 Intake & Output 01/22 0000 01/21 1600 01/21 0800 Intake Total 450 160 800 Output Total 1350 950 900 Balance -900 -790 -100 Intake, IV 100 600 Intake, Oral 450 60 200 Output, Urine 1350 950 900 Physical Exam: Lower extremity edema is markedly improved amount of drainage is reduced. Both bilateral foot wounds have 100% yellow slough awaiting podiatry evaluation for debridement. Impression/Plan Impression/Plan Impression/Plan: 72-year-old gentleman with chronic venous disease admitted with fever likely due to urinary tract infection with chronic venous stasis ulcers. Await podiatry evaluation for debridement continue leg elevation continue Gimmie Ag
--- NOTE | 2018-01-22 14:32 | PN- Infect Dx ---
Subjective Subjective: Afebrile without complaints Objective Last 24 Hrs of Vital Signs/I&O Vital Signs Date Time Temp Pulse Resp B/P B/P Pulse O2 O2 Flow FiO2 Mean Ox Delivery Rate 01/22 0800 92 Nasal 1.0L Cannula 01/22 0635 97.0 61 18 110/64 92 Nasal 2.0L Cannula 01/21 2211 98.1 78 19 120/60 97 Nasal Cannula 01/21 1743 98.7 76 19 100/60 94 Nasal Cannula Intake & Output 01/22 1600 01/22 0800 01/22 0000 Intake Total 120 450 Output Total 600 1300 1350 Balance -600 -1180 -900 Intake, Oral 120 450 Number 1 Bowel Movements Output, Urine 600 1300 1350 Physical Exam Other Physical Findings: He appears comfortable in no acute distress Abdomen is soft, nontender with positive bowel sounds; suprapubic catheter in place, with no inflammation at the site Extremities left foot bilateral malleolar ulcers with no surrounding inflammation Results Last 24 Hours of Lab Results: Laboratory Tests 01/22 0734 Chemistry Sodium (137 - 145 mmol/L) 144 Potassium (3.5 - 5.1 mmol/L) 3.7 Chloride (98 - 107 mmol/L) 109 H Carbon Dioxide (22 - 30 mmol/L) 26 Anion Gap (5 - 16) 9 BUN (9 - 20 mg/dL) 9 Creatinine (0.7 - 1.2 mg/dL) 0.9 Estimated GFR (>60 ml/min) > 60 BUN/Creatinine Ratio (7 - 25 %) 10.0 Coagulation PT (9.4 - 12.5 SEC) 29.2 H INR (0.90 - 1.17) 2.65 H Hematology CBC w Diff NO MAN DIFF REQ WBC (4.8 - 10.8 /CUMM) 5.7 RBC (4.70 - 6.10 /CUMM) 4.48 L Hgb (14.0 - 18.0 G/DL) 12.1 L Hct (42 - 52 %) 37.0 L MCV (80.0 - 94.0 FL) 82.6 MCH (27.0 - 31.0 PG) 27.0 MCHC (33.0 - 37.0 G/DL) 32.7 L RDW (11.5 - 14.5 %) 16.2 H Plt Count (130 - 400 /CUMM) 356 MPV (7.4 - 10.4 FL) 7.3 L Gran % (42.2 - 75.2 %) 67.8 Lymphocytes % (20.5 - 51.1 %) 13.8 L Monocytes % (1.7 - 9.3 %) 9.4 H Eosinophils % (0 - 5 %) 8.4 H Basophils % (0.0 - 2.0 %) 0.6 Absolute Granulocytes (1.4 - 6.5 /CUMM) 3.8 Absolute Lymphocytes (1.2 - 3.4 /CUMM) 0.8 L Absolute Monocytes (0.10 - 0.60 /CUMM) 0.5 Absolute Eosinophils (0.0 - 0.7 /CUMM) 0.5 Absolute Basophils (0.0 - 0.2 /CUMM) 0 Last 24 Hours of Rito Results: Blood cultures 2 January 19 negative Recent Imaging Studies: Arterial Doppler left leg January 21 reveals probable occlusion of the left peroneal artery, with an incidental finding of an occlusive thrombus of the common femoral and superficial femoral veins MRI of the left ankle January 21 no evidence for osteomyelitis Renal ultrasound January 21 no hydronephrosis Assessment/Plan ID Impression: Stable, with temperatures and white blood cell count remaining normal, now on Augmentin, Day 3 of treatment for probable sepsis of urologic origin secondary to Proteus. The MRI of his left ankle was negative for osteomyelitis but he is scheduled for debridement, with probable placement of a wound VAC, of both medial and lateral ulcers by Podiatry in the a.m. The Doppler results of his left leg are noted, with apparent plans for a CT angiogram of the left leg. The Doppler also revealed a DVT, which is felt to be chronic, with the patient status post IVC filter and on Coumadin prior to admission. Suggestion: 1. Await debridement of the left ankle ulcers in the a.m. 2. Await CT angiogram of the left leg per Vascular surgery 3. Continue Augmentin
[2018-01-22 14:51] VITALS: BP 110/70
--- NOTE | 2018-01-22 18:34 | CT SCAN REPORT ---
EXAMINATION: CT LOWER EXTREMITY WITH IV CONTRAST, LEFT CLINICAL INFORMATION: 72-year-old male with nonhealing foot ulcer. Peripheral arterial disease. COMPARISON: Arterial Doppler as well as MR imaging of the left foot from 01/21/2018. TECHNIQUE: Multidetector CT imaging evaluation of the left lower extremity was performed from the level of the left lower pelvis/hip to the foot during the arterial phase of intravenous administration of 120 mL of Optiray 350 nonionic contrast material. Multiplanar two-dimensional reformatted images were generated at the technologist workstation. Note that there were no three-dimensional images generated or reviewed. DLP: 919 mGy-cm FINDINGS: VASCULAR: The visualized left internal and external iliac arteries are widely patent. Common femoral, profunda femoris, superficial femoral and popliteal arteries are widely patent. Below level of the knee, there is extensive atherosclerotic calcification along the heart of the anterior tibial, peroneal and posterior tibial arteries. However, these vessels remain patent throughout their course; no focal high-grade vessel stenosis or occlusion is observed. The dorsalis pedis is widely patent. The medial and lateral plantar arteries are patent, as well. A stent is observed within the external iliac vein extending to the level of the common femoral vein. No venous phase images were obtained. Thrombosis of the left common femoral and superficial femoral vein was observed on the ultrasound exam of 01/21/2018. NONVASCULAR STRUCTURES: Fkug-zc-wqvqzjbg atrophy and partial fatty replacement of muscles of the leg. There is extensive atrophy and fatty replacement of muscles of the foot. Diffuse subcutaneous tissue edema is present within the leg, ankle and foot. A broad skin ulcer is observed along the medial hindfoot. Also, there appears to be a superficial wound/ulcer of the proximal, lateral foot. No soft tissue abscess. No evidence of osteomyelitis. There is tricompartmental osteophyte formation of the left knee. At the knee, findings include eexl-eo-[id number] loss of lateral patellofemoral joint space and rpbbcymy-wb-zfjmxm loss of the medial tibiofemoral joint space with genu varus deformity. No joint effusion or Chavez's cyst.. IMPRESSION: 1. The examined left iliac, femoral and popliteal arteries are widely patent. 2. There is atherosclerosis of the anterior tibial, posterior tibial and peroneal arteries. However, no evidence of focal high-grade stenosis or vessel occlusion. 3. Diffuse edema in subcutaneous tissues of the leg, ankle and foot. Also, soft tissue wounds are observed in the proximal foot. No evidence of soft tissue abscess or osteomyelitis. 4. A stent is present within the left external iliac vein extending to the level of the common femoral vein. This patient has a known history of deep vein thrombosis.
[2018-01-22 22:05] VITALS: BP 120/70
--- NOTE | 2018-01-23 07:14 | PN- Housestaff ---
Yaima ABREU,Valentina 01/23/18 0714: Subjective Follow-up For: Left leg ulcer PVD DVT Sepsis of urological origin Subjective: Patient was seen and examined today. Patient reports he feels well today. Has no complaints. No acute events overnight. Patient is NPO for left leg ulcer debridement today. Confirmed patient is on the schedule for today. Review of Systems Constitutional: Reports: see HPI. Objective Last 24 Hrs of Vital Signs/I&O Vital Signs Date Time Temp Pulse Resp B/P B/P Pulse O2 O2 Flow FiO2 Mean Ox Delivery Rate 01/23 0800 Room Air 01/23 0727 96.7 68 18 110/76 94 Room Air 01/23 0000 94 Nasal 1.5L Cannula 01/22 2205 98.3 70 21 120/70 94 Nasal Cannula 01/22 1927 Nasal 1.5L Cannula 01/22 1600 Nasal 1.0L Cannula 01/22 1451 97.9 65 21 110/70 93 Nasal Cannula Intake & Output 01/23 1600 01/23 0800 01/23 0000 Intake Total 700 Output Total 900 1000 Balance -900 -300 Intake, Oral 700 Number 1 Bowel Movements Output, Urine 900 1000 Physical Exam General Appearance: Alert, Cooperative, No Acute Distress Skin Temp/Moisture Exam: Warm/Dry Sepsis Skin Exam (color): Normal for Ethnicity HEENT: Atraumatic, Mucous Membr. moist/pink Cardiovascular: Regular Rate, Normal S1, Normal S2, No Murmurs Lungs: Clear to Auscultation, Normal Air Movement Abdomen: Normal Bowel Sounds, Soft, No Tenderness, suprapubic cather in place and draining, mild erythema around site, no discharge Extremities: left lower extremity ulcer wrapped in dressing and kerlix Current Medications: Current Medications Sig/Carmelita Start time Last Medication Dose Route Stop Time Status Admin Amoxicillin/ 875 MG Q12 01/21 2100 AC 01/23 Clavulanate Potassium PO 0804 Dextrose/Sodium 1,000 ML Q13H 01/23 0945 AC 01/23 Chloride IV 0944 Escitalopram Oxalate 10 MG DAILY 01/20 09 AC 01/23 PO 0804 Levothyroxine Sodium 0.075 MG DAILY 01/20 0900 AC 01/23 PO 0804 Montelukast Sodium 10 MG DAILY 01/20 0900 AC 01/23 PO 0804 Pravastatin Sodium 20 MG 1700 01/20 1700 AC 01/22 PO 1714 Ropinirole HCl 0.5 MG QPM 01/20 2100 AC 01/22 PO 1951 Sodium Chloride 1,000 ML Q13H 01/23 0830 DC 01/23 IV 01/23 2129 0831 Warfarin Sodium 5 MG COUMADIN 1700 ONE 01/23 1700 AC PO 01/23 1701 Warfarin Sodium 2.5 MG COUMADIN 1700 ONE 01/23 0600 DC PO 01/23 0601 Last 24 Hrs of Lab/Rito Results Last 24 Hrs of Labs/Mics: Laboratory Tests 01/23/18 0725: PT 22.2 H, INR 2.02 H, CBC w Diff NO MAN DIFF REQ, RBC 4.64 L, MCV 82.7, MCH 27.0, MCHC 32.7 L, RDW 16.1 H, MPV 7.1 L, Gran % 62.7, Lymphocytes % 18.3 L, Monocytes % 9.6 H, Eosinophils % 8.8 H, Basophils % 0.6, Absolute Granulocytes 3.5, Absolute Lymphocytes 1.0 L, Absolute Monocytes 0.5, Absolute Eosinophils 0.5, Absolute Basophils 0 Assessment/Plan Assessment: Patient is a 72-year-old male with a PMH significant for PVD, DVT status post IVC filter, urinary retention secondary to obstructive uropathy with suprapubic catheter placed, CVA, hypothyroidism, paroxysmal A. fib, CKD now resolved, chronic venous stasis ulcers who presents to the [facility] ED from [facility] for evaluation of a fever. T-max of 102.9 prior to presentation, and reports subjective chills. Vital signs on presentation: T103, P107, RR 18, BP 110/58, pulse ox 93% on 2 L O2 nasal cannula Labs: WBC 8.2, 13.4/40.9, platelets 392, ESR 92 sodium 139, potassium 2.4, chloride 100, CO2 27, BUN 21, creatinine 1.1, glucose 164, lactic acid was repleted 8, troponin <0.01, INR 3.2 Problems 1. Sepsis secondary to suprapubic catheter infection with urine culture growing proteus mirabilis, ID on board, antibiotics narrowed- discontinued Zosyn and started on Augmentin 875mg BID on 01/21 2. Left lower extremity ulcer - nonhealing, ruled out osteomyelitis with negative MRI, evaluated by podiatry, taken for debridement today with wound vac 3. PAD with arterial occlusion - evaluated by vascular, CT angio showing patency with previous stent in place 4. DVT in left lower extremity - apparently has had previous clots in this extremity, this may be a chronic, currently on coumadin and has an IVC filter in place 5. Supratherapeutic INR - resolved 6. Hypokalemia- resolved 7. Chronic medical problems including chronic venous stasis ulcers, paroxysmal A. fib, PVD, DVT, hypothyroidism, history of CVA Plan - Admitted to general medicine floor - Continue Augmentin for a total of 14 days of therapy - ID, wound and podiatry on board - Vascular consulted for further recommendations of arterial disease - Debridement with podiatry today - Resume diet after surgery - Monitor INR and dose coumadin today - Continue lisinopril and tamsulosin once bp improves, continue rest of home medication regimen - Wean off of supplemental O2 as tolerated Diet: Heart healthy diet DVT prophylaxis: Warfarin, no mechanical DVT prophylaxis given PVD and lower extremity ulcers CODE STATUS: DNR/DNI Problem List: 1. Foot ulcer 2. Cellulitis Pain Ratin Pain Location: n/a Pain Goal: Remain pain free Pain Plan: prn Tomorrow's Labs & Rationales: inr - on coumadin Rae Sheikh MD 01/23/18 1137: Attending MD Review Statement Attending Statement Attending MD Statement: examined this patient, discuss w/resident/PA/TIRE DUSTER, agreed w/resident/PA/TIRE DUSTER, reviewed EMR data (avail), discussed with nursing, discussed with case mgmt, amended to note Attending Assessment/Plan: Patient seen and examined. No issues overnight reported by nursing staff. He is lying comfortably in bed and offers no new complaints. He remains afebrile and hemodynamically stable. On examination he has an intact dressing over the left foot. CT angiogram done yesterday revealed the examined left iliac, femoral and popliteal arteries are widely patent. There is atherosclerosis of the anterior tibial, posterior tibial and peroneal arteries. However, no evidence of focal high-grade stenosis or vessel occlusion. Recommendations: -Patient is scheduled to undergo debridement in the OR with the podiatry service today. -Remained stable overnight he [facility] -He is to continue on Augmentin orally to complete a total of 14 days of antibiotic therapy. -Resume Coumadin postoperatively. Recommend reducing dose to 5 mg daily due to his supratherapeutic INR on presentation. INR should be monitored at the prison facility. -Repeat CBCs and chemistry if there is a change in his clinical condition.
[2018-01-23 07:27] VITALS: BP 110/76
[2018-01-23 08:26] LABS: ABSOLUTE BASOPHIL COUNT 0 /CUMM (0.0-0.2); ABSOLUTE EOSINOPHIL COUNT 0.5 /CUMM (0.0-0.7); ABSOLUTE GRANULOCYTE CT 3.5 /CUMM (1.4-6.5); ABSOLUTE MONOCYTE COUNT 0.5 /CUMM (0.10-0.60); BASOPHIL % 0.6 % (0.0-2.0); EOSINOPHIL % 8.8 % (0-5); GRANULOCYTE % 62.7 % (42.2-75.2); HEMATOCRIT 38.4 % (42-52); MEAN CORPUSCULAR HGB CONC 32.7 G/DL (33.0-37.0); MEAN CORPUSCULAR VOLUME 82.7 FL (80.0-94.0); MEAN PLATELET VOLUME 7.1 FL (7.4-10.4); PLATELET COUNT 401 /CUMM (130-400); RBC DISTRIBUTION WIDTH 16.1 % (11.5-14.5); RED BLOOD CELL CT 4.64 /CUMM (4.70-6.10); WHITE BLOOD CELL COUNT 5.5 /CUMM (4.8-10.8)
[2018-01-23 08:36] LABS: PT 22.2 SEC (9.4-12.5)
--- NOTE | 2018-01-23 09:43 | Cons- Vascular Surgery ---
General Information and HPI Consulting Request Date of Consult: 01/23/18 Requested By: Rae Sheikh MD Reason for Consult: left foot wound Source of Information: patient Exam Limitations: no limitations History of Present Illness: pt is well known to me. He is a very pleasant 72 y/o m w/ hx of stroke and residual weakness, chronically wheel chair bound with an indwelling suprapubic catheter. He has history of DVT many years ago and IVC filter was placed at that time. The patient has chornic venous stasis and post thrombotic syndrome. He is on coumadin. i have been seeing him for his left foot wounds and lateral/ medial mallellous that he developed many months ago from ill fitting shoes. I performed gsv ablation of the left leg and addtionally he has chronic left iliac vein occlusion which i attempted to recanulaize and stent, however the stent did not stay open. The patient has palpable pulses on the left foot. There was a question of arterial disease on US but CTA was down yesterday and there is no significant occlusive pad. [facility] pt currently in hospital with fever and increased drainage from left foot. Allergies/Medications Allergies: Coded Allergies: No Known Allergies (01/19/18) Home Med List: Amoxicillin/Clavulanate Potass (Amox-Clav 875-125 MG Tablet) 875 MG-125 MG TABLET 1 TAB PO BID CELLULITIS Escitalopram Oxalate 10 MG TABLET 1 TAB PO DAILY mental health (Reported) Furosemide 40 MG TABLET 1 TAB PO DAILY heart health (Reported) Levothyroxine Sodium 75 MCG TABLET 1 TAB PO DAILY hypothyroid (Reported) Montelukast Sodium 10 MG TABLET 1 TAB PO DAILY sesonal allergies (Reported) Potassium Chloride 20 MEQ TAB.ER.PRT 1 TAB PO DAILY supplement (Reported) Pravastatin Sodium 40 MG TABLET 1 TAB PO QPM hld (Reported) Ropinirole HCl 0.5 MG TABLET 1 TAB PO QPM RLS (Reported) Tamsulosin HCl 0.4 MG CAP.ER.24H 1 CAP PO DAILY BPH (Reported) Warfarin Sodium 6 MG TABLET 1 TAB PO DAILY DVT (Reported) Past History Medical History Blood Transfusion Hx: No Neurological: NONE EENT: NONE Cardiovascular: hypertension, hyperlipidemia, PVD, paroxismal A fib Gastrointestinal: NONE Hepatic: NONE Renal: chronic kidney disease, SUPRAPUBIC TUBE Musculoskeletal: MUSCLE WEAKNESS Psychiatric: depression Endocrine: hypothyroidism Blood Disorders: DVT Cancer(s): NONE 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 Extended Care Facility Who Do You Live With? self Services at Home: Nursing Primary Language: Ugandan Smoking Status: Former Smoker ETOH Use: denies use Illicit Drug Use: denies illicit drug use Functional Ability Ambulation: bedrest for chronic venous stasis ulcer Review of Systems Review of Systems: 12 point review of symptoms negative Exam & Diagnostic Data Vital Signs and I&O Vital Signs Date Time Temp Pulse Resp B/P B/P Pulse O2 O2 Flow FiO2 Mean Ox Delivery Rate 01/23 0800 Room Air 01/23 0727 96.7 68 18 110/76 94 Room Air 01/23 0000 94 Nasal 1.5L Cannula 01/22 2205 98.3 70 21 120/70 94 Nasal Cannula 01/22 1927 Nasal 1.5L Cannula 01/22 1600 Nasal 1.0L Cannula 01/22 1451 97.9 65 21 110/70 93 Nasal Cannula Intake & Output 01/23 1600 01/23 0800 01/23 0000 01/22 1600 01/22 0800 01/22 0000 Intake Total 700 120 450 Output Total 900 1000 1000 1300 1350 Balance -900 -300 -1000 -1180 -900 Intake, Oral 700 120 450 Number 1 1 Bowel Movements Output, Urine 900 1000 1000 1300 1350 nad rrr soft,nt,nd left foot bandaged. wwp. chronic venous stasis changes. palpable pt/dp pulse. Assessment/Plan Assessment/Plan 72 y/o m w/ hx of stroke, wheel chair bound, chronic dvt with venous insufficency and post thrombitc syndrome. -no evidence of significant pad at this time. -pt has chronic venous stasis. he needs good wound care and compresion. fu podiatry and id -pt wound has been managed by wound care center -continue coumadin -please call with questions. Consult Acknowledgment - Thank you for your consult request.
--- NOTE | 2018-01-23 12:14 | PN- Infect Dx ---
Subjective Subjective: Afebrile without complaints Objective Last 24 Hrs of Vital Signs/I&O Vital Signs Date Time Temp Pulse Resp B/P B/P Pulse O2 O2 Flow FiO2 Mean Ox Delivery Rate 01/23 0800 Room Air 01/23 0727 96.7 68 18 110/76 94 Room Air 01/23 0000 94 Nasal 1.5L Cannula 01/22 2205 98.3 70 21 120/70 94 Nasal Cannula 01/22 1927 Nasal 1.5L Cannula 01/22 1600 Nasal 1.0L Cannula 01/22 1451 97.9 65 21 110/70 93 Nasal Cannula Intake & Output 01/23 1600 01/23 0800 01/23 0000 Intake Total 700 Output Total 900 1000 Balance -900 -300 Intake, Oral 700 Number 1 Bowel Movements Output, Urine 900 1000 Patient 277 lb Weight Physical Exam Other Physical Findings: He appears comfortable in no acute distress Extremities left foot with medial and lateral ulcers at the ankle, with minimal surrounding erythema or edema Results Last 24 Hours of Lab Results: Laboratory Tests 01/23 0725 Coagulation PT (9.4 - 12.5 SEC) 22.2 H INR (0.90 - 1.17) 2.02 H Hematology CBC w Diff NO MAN DIFF REQ WBC (4.8 - 10.8 /CUMM) 5.5 RBC (4.70 - 6.10 /CUMM) 4.64 L Hgb (14.0 - 18.0 G/DL) 12.6 L Hct (42 - 52 %) 38.4 L MCV (80.0 - 94.0 FL) 82.7 MCH (27.0 - 31.0 PG) 27.0 MCHC (33.0 - 37.0 G/DL) 32.7 L RDW (11.5 - 14.5 %) 16.1 H Plt Count (130 - 400 /CUMM) 401 H MPV (7.4 - 10.4 FL) 7.1 L Gran % (42.2 - 75.2 %) 62.7 Lymphocytes % (20.5 - 51.1 %) 18.3 L Monocytes % (1.7 - 9.3 %) 9.6 H Eosinophils % (0 - 5 %) 8.8 H Basophils % (0.0 - 2.0 %) 0.6 Absolute Granulocytes (1.4 - 6.5 /CUMM) 3.5 Absolute Lymphocytes (1.2 - 3.4 /CUMM) 1.0 L Absolute Monocytes (0.10 - 0.60 /CUMM) 0.5 Absolute Eosinophils (0.0 - 0.7 /CUMM) 0.5 Absolute Basophils (0.0 - 0.2 /CUMM) 0 Last 24 Hours of Rito Results: Blood cultures January 19 negative Recent Imaging Studies: CTA of the left lower extremity January 22 negative for any focal high-grade stenosis or vessel occlusion; diffuse edema in the subcutaneous tissues of the leg, ankle and foot; no evidence of any soft tissue abscess or osteomyelitis Assessment/Plan ID Impression: Stable, with temperatures and white blood cell count remaining normal, on Augmentin, Day 4 of treatment for sepsis, presumably of urologic origin secondary to Proteus. The MRI of his left ankle was negative for osteomyelitis, but he is scheduled for debridement of both the medial and lateral malleolar ulcers later today, with possible placement of a wound VAC. The left leg angiogram results are noted, with no plans by Vascular surgery for revascularization. Suggestion: 1. Await debridement of both ankle ulcers later today 2. Continue Augmentin for 10 more days
[2018-01-23] MEDS ORDERED: COUMADIN5 M2 PO (13:04)
--- NOTE | 2018-01-23 13:21 | Operative Report ---
Operative/Inv Procedure Report Surgery Date: 01/23/18 Name of Procedure: 1 open incision and drainage deep to the deep fascia with exposure of the extensor tendon and tendon sheath multiple sites medial lateral left ankle 2 intraoperative application of negative pressure wound therapy 3 intraoperative administration of ankle block anesthesia 4 excisional debridement Pre-Operative Diagnosis: 1 open comminuted necrotic wounds medial and lateral left ankle 2 chronic venous insufficiency left lower extremity Post-Operative Diagnosis: The same Estimated Blood Loss: less than 50ml Surgeon/Washer Blanket: AGUILA FARMER DPM Anesthesia: moderate sedation, block Operative/Procedure Note Note: After obtaining informed consent the patient was brought to the operating room and placed on the operating table in supine position. The patient was then securely fastened to the operating table utilizing safety belt. After administration of IV sedation, 10 mL of 0.5% Marcaine plain was infiltrated about the patient's left ankle. The left foot and ankle within scrubbed, prepped and draped in usual aseptic manner. Attention directed to the medial lateral left ankles, where a large full-thickness chronic was identified. A 15 blade was utilized to sharply revised skin margins medially and laterally. The dissection was then carried down deep to the D fashion with exposure of the flexor tendon and tendon sheath multiple sites, both proximally and distally. All necrotic, nonviable infected tissue sharply evacuated wound bed. The open wounds were then irrigated with 3 L of normal sterile saline infused with 50,000 units of bacitracin. Following this, the foot was redraped and the surgeon's top gloves were changed clean gloves. Any bleeding vessels identified were cauterized or ligated as encountered. Next, they to pressure wound therapy was placed medially and laterally. This followed by the application of Kerlix and an Jack wrap. The patient was noted to tolerate both procedure and anesthesia well and the patient was transported from the operating room to recovery with vital signs stable best assess intact all digits left foot.
[2018-01-23] MEDS ORDERED: AMOX-CLAV 875-1 EACH PO (13:23)
[2018-01-23 14:57] VITALS: BP 136/60
[2018-01-23 22:10] VITALS: BP 110/62
[2018-01-24 05:57] VITALS: BP 106/64
[2018-01-24 08:28] LABS: PT 20.4 SEC (9.4-12.5)
--- NOTE | 2018-01-24 09:02 | PN- Housestaff ---
Gopi Arzola 01/24/18 0902: Subjective Follow-up For: Left leg ulcer s/p debridment D#1 PVD DVT Sepsis of urological origin Complaints: no complaints Subjective: comfortably in bed and offers no new complaints. He remains afebrile and hemodynamically stable. On examination he has an intact dressing over the left foot. Patient was taken for segical cauterization and debridmnet of his wound yesterday. No significant blood loss per surgeon; he tolerated the anesthesiology and surgery well; [place] 3 [place] [address] [place] bactrim in the OR. Patient is on PO augmentine which per ID we will resume for 9 more days. Review of Systems Constitutional: Reports: no symptoms, see HPI. Cardiovascular: Reports: no symptoms. Respiratory: Reports: no symptoms. Gastrointestinal: Reports: no symptoms. Genitourinary: Reports: no symptoms. Objective Last 24 Hrs of Vital Signs/I&O Vital Signs Date Time Temp Pulse Resp B/P B/P Pulse O2 O2 Flow FiO2 Mean Ox Delivery Rate 01/24 0557 98.0 83 20 106/64 94 Nasal 1.5L Cannula 01/24 0000 94 Nasal 2.0L Cannula 01/23 2210 98.3 81 19 110/62 94 Nasal Cannula 01/23 1600 93 Nasal 2.0L Cannula 01/23 1457 97.9 80 18 136/60 93 Nasal 3.0L Cannula Intake & Output 01/24 1600 01/24 0800 01/24 0000 Intake Total 600 1150 Output Total 400 500 Balance 200 650 Intake, IV 600 600 Intake, Oral 550 Output, Urine 400 500 Physical Exam General Appearance: Alert, Oriented X3, Cooperative, No Acute Distress Skin: No Rashes, No Breakdown, No Significant Lesion Extremities: No Clubbing, No Cyanosis, No Edema Current Medications: Current Medications Sig/Carmelita Start time Last Medication Dose Route Stop Time Status Admin Amoxicillin/ 875 MG Q12 01/21 2100 AC 01/23 Clavulanate Potassium PO 204 Dextrose/Sodium 1,000 ML Q13H 01/23 0945 AC 01/23 Chloride IV 204 Escitalopram Oxalate 10 MG DAILY 01/20 0900 AC 01/23 PO 0804 Fentanyl Citrate 100 MCG .STK-MED ONE 01/23 1225 DC IM 01/23 1226 Hydromorphone HCl 2 MG .STK-MED ONE 01/23 1352 DC IM 01/23 1353 Levothyroxine Sodium 0.075 MG DAILY 01/20 0900 AC 01/23 PO 0804 Montelukast Sodium 10 MG DAILY 01/20 0900 AC 01/23 PO 0804 Pravastatin Sodium 20 MG 1700 01/20 1700 AC 01/23 PO 1718 Ropinirole HCl 0.5 MG QPM 01/20 2100 AC 01/23 PO 2043 Sodium Chloride 1,000 ML Q13H 01/23 0830 DC 01/23 IV 01/23 2129 0831 Warfarin Sodium 5 MG COUMADIN 1700 ONE 01/23 1700 DC 01/23 PO 01/23 1701 1718 Last 24 Hrs of Lab/Rito Results Last 24 Hrs of Labs/Mics: Laboratory Tests 01/24/18 0705: PT 20.4 H, INR 1.86 H Last 24 Hours of Rito Results: Blood cultures January 19 negative Recent Imaging Studies: CTA of the left lower extremity January 22 negative for any focal high-grade stenosis or vessel occlusion; diffuse edema in the subcutaneous tissues of the leg, ankle and foot; no evidence of any soft tissue abscess or osteomyelitis Assessment/Plan Assessment: 72 years old man was admitted for chronic nonhealing wounds of the left lower extremity. MRI was negative. Yesterday he was taken to OR for debridment with diagnosis of open comminuted necrotic wounds medial and lateral left ankle and chronic venous insufficiency left lower extremity. Surgery was uncomplicated and he tolerated the surgery well. Recommendations: -Chronic lower extremity wound S/P debridement # 1 no fever overnight. D/C fluid and continue with regular diet.; Remained stable overnight he may be discharged back to [facility] facility tomorrow. D/C O2 -Complicated urinary tract infection in the setting of chronic Hill: continue on Augmentin orally for 9 more days to finish the course of 14d; continue wound vac -INR slightly below w/in therapeutic range; resume coumadine at decreased dose of 5 mg; daily check of INR in the nursing facility and does accordingly -no need to repeat CBCs and chemistry as he is clinical stable. Problem List: 1. Foot ulcer Pain Ratin Pain Location: left leg Pain Goal: Remain pain free Pain Plan: as per medication Tomorrow's Labs & Rationales: INR Rae Sheikh MD 01/24/18 1054: Attending MD Review Statement Attending Statement Attending MD Statement: examined this patient, discuss w/resident/PA/BOILER SERVICE TECHNICIAN, agreed w/resident/PA/BOILER SERVICE TECHNICIAN, reviewed EMR data (avail), discussed with nursing, discussed with case mgmt, amended to note Attending Assessment/Plan: Patient seen and examined. Resting comfortably not in any acute distress. No issues overnight reported by nursing staff. He successfully underwent excisional debridement of his left foot also yesterday by the podiatry service. A wound VAC was placed. He is currently afebrile and hemodynamically stable. He has no new complaints today. He is medically stable to be discharged back to [facility] facility today. CT angiogram showed left iliac, femoral and popliteal arteries are widely patent. There is atherosclerosis of the anterior tibial, posterior tibial and peroneal arteries. However, no evidence of focal high-grade stenosis or vessel occlusion. Recommendations: -Medically stable to be discharged back to [facility] facility today. -Continue Augmentin to complete his course for his acute complicated urinary tract infection likely secondary to his chronic indwelling suprapubic Hill catheter -Patient to follow-up with his wound care service as an outpatient. -Patient to follow-up with his vascular surgery service as an outpatient. -INR is mildly subtherapeutic today. Patient did present with supratherapeutic INR remain elevated for a few days despite holding his Coumadin. Continue on the reduced dose of 5 mg daily. INR should be monitored regularly at the [facility] facility and Coumadin dose adjusted accordingly.
[2018-01-24 14:05] VITALS: BP 112/65
[2018-01-24 15:14] VITALS: BP 112/65
== END 2018-01-24 15:28 | DRG 673 ==
LOC: ERH 16:58 → ERHI 18:32 → 2NA 18:32 → ENRESERV 19:10 → 2NA 23:18 → ENTRNSPT 01-23 14:14 → EDTRNSPTSTS 01-23 14:36 → EDTRNSPT 01-23 14:36 → CMPTRNSPT 01-23 14:58 → 2NA 01-24 15:28
PROVIDERS: Emergency Medicine; Student in an Organized Health Care Education/Training Program
PROC: 3E0T3BZ Introduction of Anesthetic Agent into Peripheral Nerves and Plexi, Percutaneous Approach (ICD-10-PCS; principal; 2018-01-23)
PROC: 2W1TX6Z Compression of Left Foot using Pressure Dressing (ICD-10-PCS; principal; 2018-01-23)
PROC: 0JBR0ZZ Excision of Left Foot Subcutaneous Tissue and Fascia, Open Approach (ICD-10-PCS; principal; 2018-01-23)
DX: T83.511A Infection and inflammatory reaction due to indwelling urethral catheter, initial encounter (principal); A41.9 Sepsis, unspecified organism; L03.116 Cellulitis of left lower limb; L97.219 Non-pressure chronic ulcer of right calf with unspecified severity; L97.229 Non-pressure chronic ulcer of left calf with unspecified severity; Y73.8 Miscellaneous gastroenterology and urology devices associated with adverse incidents, not elsewhere classified; Z86.711 Personal history of pulmonary embolism; Z79.01 Long term (current) use of anticoagulants; I48.0 Paroxysmal atrial fibrillation; T45.515A Adverse effect of anticoagulants, initial encounter; N13.9 Obstructive and reflux uropathy, unspecified; I83.012 Varicose veins of right lower extremity with ulcer of calf; I83.022 Varicose veins of left lower extremity with ulcer of calf; E87.6 Hypokalemia; Z95.9 Presence of cardiac and vascular implant and graft, unspecified; E78.5 Hyperlipidemia, unspecified; I10 Essential (primary) hypertension; E03.9 Hypothyroidism, unspecified; I73.9 Peripheral vascular disease, unspecified; F32.9 Major depressive disorder, single episode, unspecified; Z99.3 Dependence on wheelchair; B96.4 Proteus (mirabilis) (morganii) as the cause of diseases classified elsewhere; R79.1 Abnormal coagulation profile; Z66 Do not resuscitate
CPT/HCPCS: 2NAP; 75659; 36592; 71045; 71046; 73630-LT; 76775; 81001; 82436; 87040; 87070; 87086; 93005; 93010; 96361; 96374; 96375; J0131; J2001; J2543; J3370; J3490; J7040; J7042